=== PATIENT | female | born 1935 | race Caucasian/White ===

== ENCOUNTER 2017-04-14 10:55 | Outpatient (CLI) | payer MEDICARE | END 2017-04-14 10:56 | disposition home or self-care (01) | LOC: BICRAD 10:55 | PROVIDERS: ATTEND Family Medicine | DX: J40 Bronchitis, not specified as acute or chronic (principal) | CPT/HCPCS: 71020 ==

== ENCOUNTER 2017-08-25 16:51 | Emergency (ER) | payer MEDICARE ==
[2017-08-25 18:13] LABS: INR-International Normal Ratio 1.2; PTT 29.8 SEC (22.9-36.1); Prothrombin Time 15.8 SEC (12.0-14.7)
--- NOTE | 2017-08-25 20:27 | CT ---
NONCONTRAST HEAD CT: 08/25/17 HISTORY: Patient fell and hit head today. Patient is on blood thinners. Posttraumatic pain. COMPARISON: 09/04/16, 10/15/12. TECHNIQUE: Noncontrast head CT is performed from skull base to skull vertex. FINDINGS: No parenchymal hemorrhage. No extra-axial hematoma. No midline shift. Basilar cisterns are patent. Brain volume is age appropriate. Cortical james-white matter differentiation is preserved. Ventricles and sulci are patent and symmetric. The ventricular system is slightly more prominent than expected f or the degree of brain volume loss. Correlate for normal pressure hydrocephalus. White matter hypoden sities are similar to the previous examination and are felt to be due to chronic small vessel ischemi c change. Mottled appearance of the calvarium is unchanged from 2013 and is likely chronic. Adequate aeration o f the sinuses and mastoid air cells. No calvarial fractures. Cavernous carotid atherosclerosis is not ed. IMPRESSION: 1. No intracranial posttraumatic sequela. 2. Correlate for possible normal pressure hydrocephalus. POS: [facility]
--- NOTE | 2017-08-25 20:32 | CT ---
CT CERVICAL SPINE WITHOUT CONTRAST: 08/25/17 HISTORY: Patient is on blood thinners. Fall. Posttraumatic pain. COMPARISON: None. TECHNIQUE: Cervical spine CT is performed without contrast. Reformatted images are submitted for interpretation. FINDINGS: Soft tissue neck structures are unremarkable. There is extensive atherosclerosis involving both carot id arteries, with incomplete evaluation. Mass effect upon the posterior right supraglottic larynx due to medial deviation of the right internal carotid artery. Upper mediastinum and lung apices are unre markable. Mild heterogeneity of the thyroid, incompletely evaluated. There are varying degrees of central canal stenosis and foraminal narrowing on the basis of degenerat clary change. Evaluation is limited by technique. No evidence of craniocervical dissociation. Lateral masses of C1 and C2 as well as the facets have ap propriate articulation and alignment. There are degenerative changes of the facets throughout the cer vical spine. Odontoid process is intact. There is straightening of the normal cervical lordosis. Grade I anterolisthesis of C3 upon C4, C4 upo n C5 and C5 upon C6 is noted. Degenerative disc disease with loss of disc space height and osteophyte formation at C5-C6 and C6-C7. Cervical spine vertebral body height is maintained. No fracture. IMPRESSION: No fracture. POS: [facility]
== END 2017-08-25 20:03 | disposition home or self-care (01) ==
LOC: ERS 16:51
DX: S00.83XA Contusion of other part of head, initial encounter (principal); I10 Essential (primary) hypertension; I48.91 Unspecified atrial fibrillation; F32.9 Major depressive disorder, single episode, unspecified; Z87.891 Personal history of nicotine dependence; Z79.899 Other long term (current) drug therapy; W19.XXXA Unspecified fall, initial encounter
CPT/HCPCS: 36415; 70450; 72125; 80053; 81003; 85025; 85610; 85730; 87086

== ENCOUNTER 2017-09-17 08:25 | Emergency (ER) | payer MEDICARE ==
[2017-09-17 09:16] LABS: Bilirubin Negative (Negative); Blood, Urine Negative (Negative); Clarity CLEAR (Clear); Glucose, Urine (Dipstick) >=1000 mg/dL (Negative); Leukocyte Negative (Negative); Nitrite Negative (Negative); Protein, Urine (Dipstick) Negative (Neg-Trace); Specific Gravity, Urine 1.013 (1.002-1.036); Urobilinogen 0.2 mg/dL (0.2-1.0)
--- NOTE | 2017-09-17 09:29 | CT ---
CT HEAD WITHOUT IV CONTRAST: Date: 09-17-17 History: Trauma. Patient has head injury after a fall this morning in restroom. Patient hit back of h ead. Patient has had vomiting. Comparison: 08-25-17 FINDINGS: Again noted is confluent decreased attenuation of the periventricular white matter, similar to the pr ior study and likely reflective of severe chronic small vessel ischemic changes. There is no evidence of an acute cortical infarction, hemorrhage, mass effect or midline shift. There is mild cerebral vo lume loss. Ventricular system does appear mildly dilated and out of proportion to the degree of sulca l atrophy, probably related to greater central cerebral atrophy. However, an element of normal pressu re hydrocephalus could not be entirely excluded. Vascular calcifications are seen in the carotid siphons. There is a stable mottled appearance of the calvarium, unchanged from the prior study and is also sta ble when compared to a study in 2013. This is likely chronic in origin. There has been no interval change compared to the prior exam. IMPRESSION: 1. No acute intracranial abnormalities demonstrated. 2. Severe chronic small vessel ischemic changes and cerebral volume loss. 3. Dilatation of the ventricular system which may be related to greater central cerebral atrophy, but an element of normal pressure hydrocephalus cannot be excluded. Findings are stable from the prior e xam. POS: [facility]
[2017-09-17 09:30] LABS: #Eosinphils 0.1 thou/uL (0.0-0.7); #Lymphocytes 1.4 thou/uL (1.20-3.40); #Monocytes 0.6 thou/uL (0.11-0.59); #Neutrophils 4.3 thou/uL (1.40-6.50); %Basophils 0.3 % (0.0-1.0); %Eosinophils 0.8 % (0.0-10.0); %Lymphocytes 21.3 % (21.0-51.0); %Monocytes 9.4 % (0.0-10.0); %Neutrophils 68.2 % (42.0-75.0); ALT (SGPT) 9 U/L (8-55); AST (SGOT) 12 U/L (5-34); Albumin 4.3 g/dL (3.4-4.8); Alkaline Phosphatase 55 U/L (40-150); Anion Gap 13 mmol/L (10-20); BUN (Urea Nitrogen) 12 mg/dL (9.8-20.1); Bilirubin, Total 0.7 mg/dL (0.2-1.2); Calc. Creatinine Clearance 0 mL/min (70-130); Calcium 9.9 mg/dL (7.8-10.44); Carbon Dioxide 25 mmol/L (23-31); Chloride 96 mmol/L (98-107); Estimated GFR-MDRD 72; Globulin 2.2 g/dL (2.4-3.5); Glucose 141 mg/dL (83-110); Hemoglobin 15.2 g/dL (12.0-16.0); Mean Corpuscular HGB CONC 33.1 g/dL (32.0-36.0); Mean Corpuscular Hemoglobin 26.3 pg (27.0-31.0); Mean Corpuscular Volume 79.4 fl (81.0-99.0); Mean Platelet Volume 6.7 fL (7.4-10.4); Platelet Count 321 thou/uL (130-400); Potassium 3.9 mmol/L (3.5-5.1); Protein, Total 6.5 g/dL (6.0-8.3); Red Blood Cell (RBC) Count 5.81 mill/uL (4.20-5.40); Sodium 130 mmol/L (136-145); White Blood Cell (WBC) Count 6.4 thou/uL (4.8-10.8)
[2017-09-17 10:06] LABS: CKMB 0.5 ng/mL (0-6.6); Troponin I Less than 0.010 ng/mL (< 0.028)
== END 2017-09-17 10:39 | disposition home or self-care (01) ==
LOC: ERS 08:25
DX: S09.90XA Unspecified injury of head, initial encounter (principal); E11.9 Type 2 diabetes mellitus without complications; I48.91 Unspecified atrial fibrillation; I10 Essential (primary) hypertension; F32.9 Major depressive disorder, single episode, unspecified; Z87.891 Personal history of nicotine dependence; Z79.899 Other long term (current) drug therapy; W22.8XXA Striking against or struck by other objects, initial encounter; Y92.89 Other specified places as the place of occurrence of the external cause
CPT/HCPCS: 70450; 80053; 81003; 82553; 84484; 85025; 93005

== ENCOUNTER 2017-09-29 07:51 | Outpatient (CLI) | payer MEDICARE ==
--- NOTE | 2017-09-29 10:33 | CT ---
NONCONTRAST ENHANCED CT CHEST CT LUNG LOW DOSE SCAN SCREENING CT: HISTORY: A 81-year-old female with a 30-year history of smoking. The patient quit 13 years ago. FINDINGS: A low-dose CT is performed. CT images demonstrate extensive calcification of the aorta and coronary arteries. The lung parenchyma is unremarkable. No evidence of pulmonary parenchymal masses or lesions seen. No evidence of pleural plaque seen. Some minimal paratracheal lymph node enlargement is seen. None of these appear to be more than 1 cm in diameter. IMPRESSION: Lung RADS category 1. POS: [facility]
== END 2017-09-29 07:52 | disposition home or self-care (01) ==
LOC: CT 07:51
PROVIDERS: ATTEND Internal Medicine Geriatric Medicine
DX: Z87.891 Personal history of nicotine dependence (principal); R11.0 Nausea
CPT/HCPCS: G0297

== ENCOUNTER 2018-01-24 08:33 | Outpatient (CLI) | payer MEDICARE | END 2018-01-24 08:34 | disposition home or self-care (01) | LOC: BICMAMMO 08:33 | PROVIDERS: ATTEND Internal Medicine Geriatric Medicine | DX: Z12.31 Encounter for screening mammogram for malignant neoplasm of breast (principal); R92.1 Mammographic calcification found on diagnostic imaging of breast; Z80.3 Family history of malignant neoplasm of breast | CPT/HCPCS: 77063; 77067 ==

== ENCOUNTER 2018-01-28 07:52 | Outpatient (CLI) | payer MEDICARE ==
[2018-01-28] MEDS ORDERED: ISOVUE-370 76%-LOCM 1 ML ONE (10:30)
--- NOTE | 2018-01-28 14:29 | CT ---
CT ANGIO OF ABDOMEN AND GIUSEPPE AND LOWER EXTREMTIES PERFORMED WITH INTRAVENOUS CONTRAST ENHANCEMENT WI TH 3d RECONSTRUCTIONS: HISTORY: Diabetic with peripheral vascular disease. The lung bases are clear of any infiltrative process. The liver, spleen, pancreas, and gallbladder regions appear unremarkable on this angiographic phase e xam. Right and left adrenal glands and right and left kidneys are normal in size. No significant periaort ic or mesenteric adenopathy. No free fluid or bowel wall findings. The angiographic portion of the study yielded a fairly good study. There is fairly extensive atheros clerotic change of the abdominal aorta. It is not aneurysmal. The celiac artery shows no significan t stenosis. There is some moderate plaque formation at the origin of the superior mesenteric artery and a mild degree of narrowing somewhat difficult to assess given the calcified plaque. There are 2 right and left renal arteries with smaller lower pole renal arteries seen. The main renal arteries s how some prominent calcified plaque at the origin with an area of mild to moderate narrowing in the l eft main renal artery. The right lower extremity runoff shows dense calcification at the origin of the right common iliac ar dorys. I do not see any definite flow within the right common iliac artery, but there is reconstituti on of flow seen at the bifurcation of the internal and external iliac arteries. There is an area of moderate stenosis of the external iliac artery and there is fairly extensive calcified plaque at the common femoral artery at this level which is also mild to moderately narrowed. There appears to a fo cus of moderately severe stenosis near the junction of the external and common femoral arteries and t here is plaque formation in areas of mild narrowing of the proximal superficial femoral artery. The profunda femoral is patent. Distally, the superficial femoral artery shows no significant stenosis. The popliteal artery shows some plaque formation and mild narrowing of less than 50% with a patent t rifurcation. Posterior tibial extends to the foot. The anterior tibial and peroneal extend to appro ximately the ankle. I do not see a definite dorsalis pedis. On the left side, there is a moderately severe stenosis of the origin of the left common iliac artery . Dense plaque formation is seen in the common iliac artery distally and extensive plaque at the di gin of the internal iliac artery. It is difficult to show flow at this level but directly below this flow is seen within the internal iliac with moderate stenosis. The external iliac is patent. There is calcified plaque at the level of the common femoral artery with moderately severe stenosis. The profunda femoral and superficial femoral arteries are patent. There are areas of mild to moderate st enosis and calcified plaque at origin of the proximal superficial femoral artery. The popliteal navya ry does not show any significant stenosis. There is a patent trifurcation. Both the anterior tibial and peroneal branches are no longer seen and at just above the level of the ankle, a posterior tibia l artery is seen into the foot. IMPRESSION: 1. Extensive calcified plaque formation which makes assessment of the exact degree of stenosis diffi cult. 3. On the right side, there appears to be occlusion of the right common iliac artery at its origin w ith reconstitution at the level of the bifurcation of the internal and internal and external iliac ar teries. There is moderately sever stenosis at the junction of the common femoral and external iliac arteries and areas of mild to moderate narrowing of the proximal superficial femoral artery. There i s 3-vessel runoff to approximately the ankle, but below this level the peroneal and anterior tibial b ranches are not seen and a dorsalis pedis is not demonstrated. 3. On the left side, there is moderately severe narrowing of the left common iliac artery and origin of the left internal iliac. There is also moderate stenosis of the left common femoral artery and s ome areas of mild to moderate narrowing of the proximal superficial femoral artery. There is a paten t trifurcation and, once again, the anterior tibial and peroneal branches are seen to just above the ankle with the posterior tibial extending to the foot. POS: [facility]
== END 2018-01-28 07:53 | disposition home or self-care (01) ==
LOC: BICCT 07:52
PROVIDERS: ATTEND Internal Medicine Cardiovascular Disease
DX: I73.9 Peripheral vascular disease, unspecified (principal); I70.8 Atherosclerosis of other arteries
CPT/HCPCS: 75635; 82565

== ENCOUNTER 2019-03-13 12:48 | Emergency (ER) | payer MEDICARE ==
[2019-03-13 13:18] LABS: #Basophils 0.1 thou/uL (0.0-0.2); #Eosinphils 0.2 thou/uL (0.0-0.7); #Lymphocytes 1.2 thou/uL (1.20-3.40); #Monocytes 0.8 thou/uL (0.11-0.59); #Neutrophils 6.4 thou/uL (1.40-6.50); %Basophils 0.6 % (0.0-1.0); %Eosinophils 2.2 % (0.0-10.0); %Lymphocytes 14.2 % (21.0-51.0); %Monocytes 8.8 % (0.0-10.0); %Neutrophils 74.3 % (42.0-75.0); Hemoglobin 11.7 g/dL (12.0-16.0); Mean Corpuscular HGB CONC 34.2 g/dL (32.0-36.0); Mean Corpuscular Hemoglobin 26.5 pg (27.0-31.0); Mean Corpuscular Volume 77.3 fL (78.0-98.0); Mean Platelet Volume 7.1 fL (7.4-10.4); Platelet Count 317 thou/uL (130-400); RBC Distribution Width 12.1 % (11.5-14.5); Red Blood Cell (RBC) Count 4.43 mill/uL (4.20-5.40); White Blood Cell (WBC) Count 8.6 thou/uL (4.8-10.8)
[2019-03-13 13:27] LABS: Anion Gap 13 mmol/L (10-20); BUN (Urea Nitrogen) 12 mg/dL (9.8-20.1); Calc. Creatinine Clearance 0 mL/min (70-130); Calcium 9.4 mg/dL (7.8-10.44); Carbon Dioxide 24 mmol/L (23-31); Chloride 94 mmol/L (98-107); Estimated GFR-MDRD 82; Glucose 79 mg/dL (83-110); Potassium 4.2 mmol/L (3.5-5.1); Sodium 127 mmol/L (136-145)
[2019-03-13 13:28] LABS: ALT (SGPT) 23 U/L (8-55); AST (SGOT) 22 U/L (5-34); Albumin 3.9 g/dL (3.4-4.8); Alkaline Phosphatase 77 U/L (40-110); Bilirubin, Total 0.4 mg/dL (0.2-1.2); Globulin 2.4 g/dL (2.4-3.5); Protein, Total 6.3 g/dL (6.0-8.3)
--- NOTE | 2019-03-13 13:28 | RAD ---
2 VIEWS CHEST: Date: 03/13/19 COMPARISON: 01/20/19. HISTORY: Cough. FINDINGS: 2 views of the chest show a normal size cardiomediastinal silhouette with atherosclerotic calcificati ons in the aorta. There is no evidence of consolidation, mass, or pleural effusion. IMPRESSION: No evidence of acute cardiopulmonary disease. POS: [facility]
[2019-03-13] MEDS ORDERED: Furosemide 40 MG/4 ML VIAL ONE (16:20)
[2019-03-13] MEDS ORDERED: Furosemide 40 MG TAB ONE (16:54)
== END 2019-03-13 17:20 | disposition home or self-care (01) ==
LOC: ERS 12:48
DX: J06.9 Acute upper respiratory infection, unspecified (principal); E87.1 Hypo-osmolality and hyponatremia; R79.0 Abnormal level of blood mineral; E11.9 Type 2 diabetes mellitus without complications; I48.91 Unspecified atrial fibrillation; I10 Essential (primary) hypertension; F32.9 Major depressive disorder, single episode, unspecified; Z87.891 Personal history of nicotine dependence; Z79.84 Long term (current) use of oral hypoglycemic drugs; Z79.899 Other long term (current) drug therapy
CPT/HCPCS: 36415; 71046; 80053; 83880; 84484; 85025; 87804; 93005; J1940

== ENCOUNTER 2019-04-04 10:42 | Emergency (ER) | payer MEDICARE ==
[2019-04-04 11:07] LABS: #Eosinphils 0.2 thou/uL (0.0-0.7); #Lymphocytes 1.2 thou/uL (1.20-3.40); #Monocytes 0.4 thou/uL (0.11-0.59); %Basophils 0.2 % (0.0-1.0); %Eosinophils 3.8 % (0.0-10.0); %Lymphocytes 21.2 % (21.0-51.0); %Monocytes 6.5 % (0.0-10.0); %Neutrophils 68.4 % (42.0-75.0); Hemoglobin 12.4 g/dL (12.0-16.0); Mean Corpuscular HGB CONC 31.6 g/dL (32.0-36.0); Mean Corpuscular Hemoglobin 25.1 pg (27.0-31.0); Mean Corpuscular Volume 79.4 fL (78.0-98.0); Mean Platelet Volume 7.4 fL (7.4-10.4); Platelet Count 242 thou/uL (130-400); RBC Distribution Width 13.1 % (11.5-14.5); Red Blood Cell (RBC) Count 4.92 mill/uL (4.20-5.40); White Blood Cell (WBC) Count 5.8 thou/uL (4.8-10.8)
[2019-04-04 11:13] LABS: INR-International Normal Ratio 1.2; PTT 29.7 SEC (22.9-36.1); Prothrombin Time 15.1 SEC (12.0-14.7)
--- NOTE | 2019-04-04 11:13 | CT ---
EXAM: CT brain without contrast HISTORY: Fell and hit head on wall COMPARISON: 09/17/2017 TECHNIQUE: Multiple contiguous axial images were obtained and a CT of the brain without contrast. FINDINGS: There are scattered hypodensities in the subcortical and periventricular white matter consi stent with small vessel ischemic disease. There is no evidence of hydrocephalus, intracranial hemorrhage, or extra-axial fluid collection. There is stable sclerosis of the calvarium. The overlying soft tissues are unremarkable. The visualiz ed paranasal sinuses and mastoid air cells are well aerated. IMPRESSION: No evidence of acute intracranial abnormality
[2019-04-04 12:49] LABS: ALT (SGPT) 11 U/L (8-55); AST (SGOT) 13 U/L (5-34); Albumin 3.9 g/dL (3.4-4.8); Alkaline Phosphatase 58 U/L (40-110); Anion Gap 13 mmol/L (10-20); BUN (Urea Nitrogen) 16 mg/dL (9.8-20.1); Bilirubin, Total 0.5 mg/dL (0.2-1.2); Calc. Creatinine Clearance 0 mL/min (70-130); Calcium 9.1 mg/dL (7.8-10.44); Carbon Dioxide 26 mmol/L (23-31); Chloride 101 mmol/L (98-107); Estimated GFR-MDRD 70; Globulin 2.1 g/dL (2.4-3.5); Glucose 171 mg/dL (83-110); Potassium 3.8 mmol/L (3.5-5.1); Sodium 136 mmol/L (136-145)
== END 2019-04-04 13:11 | disposition home or self-care (01) ==
LOC: ERS 10:42
DX: S09.90XA Unspecified injury of head, initial encounter (principal); I48.91 Unspecified atrial fibrillation; G30.9 Alzheimer's disease, unspecified; F32.9 Major depressive disorder, single episode, unspecified; Z87.891 Personal history of nicotine dependence; Z79.899 Other long term (current) drug therapy; Z79.84 Long term (current) use of oral hypoglycemic drugs; W22.01XA Walked into wall, initial encounter
CPT/HCPCS: 36415; 70450; 80053; 85025; 85610; 85730

== ENCOUNTER 2019-09-20 10:21 | Outpatient (CLI) | payer MEDICARE ==
--- NOTE | 2019-09-20 11:17 | RAD ---
PA AND LATERAL VIEWS OF CHEST: Date: 09/20/2019 HISTORY: Chest wall pain, back pain. FINDINGS: Comparison made with exam of 03/13/2019. The heart size is borderline. The aorta is tortuous. The lungs are expanded without lobar consolidati on, pneumothoraces, tabatha pulmonary edema, or pleural effusions. IMPRESSION: No acute process. POS: [facility]
--- NOTE | 2019-09-20 12:08 | RAD ---
THORACIC SPINE 3 VIEWS: Date: 09/20/2019 HISTORY: Back pain. FINDINGS/IMPRESSION: Degenerative changes are present. There is mild vertebral body height loss in the lower thoracic vert ebra. No subluxation or bony destruction is identified. POS: [facility]
== END 2019-09-20 10:22 | disposition home or self-care (01) ==
LOC: BICRAD 10:21
PROVIDERS: ATTEND Family Medicine
DX: M54.5 Low back pain (principal); R07.89 Other chest pain; M47.816 Spondylosis without myelopathy or radiculopathy, lumbar region; M48.8X4 Other specified spondylopathies, thoracic region
CPT/HCPCS: 36415; 71046; 72072; 80053; 84443; 85025

== ENCOUNTER 2019-09-26 07:33 | Outpatient (CLI) | payer MEDICARE ==
--- NOTE | 2019-09-26 08:06 | ULT ---
Sonogram right upper quadrant HISTORY: Right upper quadrant pain. FINDINGS: Gallbladder has a normal appearance. Common duct is 0.5 cm. Liver unremarkable without focal mass or intrahepatic biliary dilatation. No free fluid. IMPRESSION : Normal exam.
== END 2019-09-26 07:34 | disposition home or self-care (01) ==
LOC: ULT 07:33
PROVIDERS: ATTEND Family Medicine
DX: R10.11 Right upper quadrant pain (principal)
CPT/HCPCS: 76705

== ENCOUNTER 2019-11-16 02:26 | Inpatient (IN) | payer MEDICARE ==
[2019-11-16] MEDS ORDERED: Ondansetron PF 4 MG/2 ML Vial ONE (02:49)
[2019-11-16 03:11] LABS: #Basophils 0.1 thou/uL (0.0-0.2); #Eosinphils 0.1 thou/uL (0.0-0.7); #Lymphocytes 1.8 thou/uL (1.20-3.40); #Monocytes 0.5 thou/uL (0.11-0.59); #Neutrophils 6.3 thou/uL (1.40-6.50); %Basophils 0.9 % (0.0-1.0); %Eosinophils 1.1 % (0.0-10.0); %Lymphocytes 20.8 % (21.0-51.0); %Monocytes 5.5 % (0.0-10.0); %Neutrophils 71.7 % (42.0-75.0); Hemoglobin 14.1 g/dL (12.0-16.0); Mean Corpuscular HGB CONC 32.2 g/dL (32.0-36.0); Mean Corpuscular Hemoglobin 26.3 pg (27.0-31.0); Mean Corpuscular Volume 81.5 fL (78.0-98.0); Mean Platelet Volume 7.2 fL (7.4-10.4); Platelet Count 340 thou/uL (130-400); Red Blood Cell (RBC) Count 5.37 mill/uL (4.20-5.40); White Blood Cell (WBC) Count 8.7 thou/uL (4.8-10.8)
[2019-11-16 03:30] LABS: ALT (SGPT) 13 U/L (8-55); AST (SGOT) 19 U/L (5-34); Albumin 4.3 g/dL (3.4-4.8); Alkaline Phosphatase 77 U/L (40-110); Anion Gap 15 mmol/L (10-20); BUN (Urea Nitrogen) 15 mg/dL (9.8-20.1); Bilirubin, Total 0.6 mg/dL (0.2-1.2); Calc. Creatinine Clearance 0 mL/min (70-130); Calcium 9.2 mg/dL (7.8-10.44); Carbon Dioxide 21 mmol/L (23-31); Chloride 95 mmol/L (98-107); Estimated GFR-MDRD 63; Globulin 2.4 g/dL (2.4-3.5); Glucose 222 mg/dL (83-110); Potassium 3.3 mmol/L (3.5-5.1); Protein, Total 6.7 g/dL (6.0-8.3); Sodium 128 mmol/L (136-145)
[2019-11-16 03:42] LABS: Bacteria/HPF 4+ HPF (None Seen); Bilirubin Negative (Negative); Blood, Urine Negative (Negative); Clarity Clear (Clear); Glucose, Urine (Dipstick) 30 mg/dL (Negative); Ketone, Urine 10 mg/dL (Negative); Leukocyte Negative Leu/uL (Negative); Mucous/LPF Rare LPF (<2+); Nitrite 1+ (Negative); Protein, Urine (Dipstick) 50 mg/dL (Neg-Trace); RBC/HPF 0-3 HPF (0-3); Squamous Epithelial None Seen HPF (0-3); Urobilinogen Normal mg/dL (Less than 2)
[2019-11-16] MEDS ORDERED: cefTRIAXone\\ROCEPHIN 2 GM VIAL ONE (03:56)
[2019-11-16] MEDS ORDERED: Ondansetron ODT 4 MG TAB PO PRN (04:51)
[2019-11-16] MEDS ORDERED: Calcium Carbonate 500 MG ChewTAB PO PRN (04:51)
[2019-11-16] MEDS ORDERED: Acetaminophen 650 MG Suppository PR PRN (04:51)
[2019-11-16] MEDS ORDERED: Ondansetron PF 4 MG/2 ML Vial IVP PRN (04:51)
[2019-11-16] MEDS ORDERED: Guaifenesin DM 100-10/5 ML UDCUP PO PRN (04:51)
[2019-11-16] MEDS ORDERED: HYDROcodone/Acetaminophen 5/325 mg Tablet PO PRN (04:51)
--- NOTE | 2019-11-16 05:37 | PDOC.HHP ---
Hospitalist HPI - History of Present Illness altered mental status History of Present Illness: most of the history from ed physician and emr, patient only oriented to person during my evaluation apparently this is her base Case of 83y/o female with pmhx of dm a fib htn and alzheimer disease who comes to hospital due to altered mental state and possible seizure episode. roomate refers patient has been complaning of fever, body aches, chills, cough, nausea and vomiting, during my evaluation pt denied all of these. the patient was brought to hospital because apparently roomate saw her have a seizure, pt has no history of seizures. The patient has a history of Alzheimer's dementia and is altered at baseline. No reported ill contacts. at arrival patient also noted to be hypoxic in the upper 80s for which hospitalist was called for further evaluation and management Hospitalist ROS - Review of Systems ROS unobtainable: due to mental status Hospitalist History - Past Surgical History Other Surgical History: unable to asses due to disorientation - Family History Other Family History: unable to asses due to disorientation - Social History Other Social History: unable to asses due to desorientation - Exam General Appearance: NAD, awake alert Eye: PERRL, anicteric sclera ENT: normocephalic atraumatic, no oropharyngeal lesions Neck: supple, symmetric, no JVD Heart: RRR, no murmur, no gallops Respiratory: CTAB, no wheezes, no rales Gastrointestinal: soft, non-tender, non-distended Extremities: no cyanosis, no clubbing Skin: normal turgor, no lesions Neurological: cranial nerve grossly intact, normal sensation to touch Musculoskeletal: normal tone, normal strength, no muscle wasting Psychiatric: normal affect, normal behavior, oriented to person Hospitalist Results - Labs Result Diagrams: 11/16/19 03:02 11/16/19 03:02 Lab results: WBC 8.7 thou/uL (4.8-10.8) 11/16/19 03:02 Hgb 14.1 g/dL (12.0-16.0) 11/16/19 03:02 Hct 43.8 % (36.0-47.0) 11/16/19 03:02 MCV 81.5 fL (78.0-98.0) 11/16/19 03:02 Plt Count 340 thou/uL (130-400) 11/16/19 03:02 Neutrophils % 71.7 % (42.0-75.0) 11/16/19 03:02 Sodium 128 mmol/L (136-145) L 11/16/19 03:02 Potassium 3.3 mmol/L (3.5-5.1) L 11/16/19 03:02 Chloride 95 mmol/L (98-107) L 11/16/19 03:02 Carbon Dioxide 21 mmol/L (23-31) L 11/16/19 03:02 BUN 15 mg/dL (9.8-20.1) 11/16/19 03:02 Creatinine 0.86 mg/dL (0.6-1.1) 11/16/19 03:02 Glucose 222 mg/dL (83-110) H 11/16/19 03:02 Lactic Acid 1.9 mmol/L (0.5-2.2) 11/16/19 03:02 Calcium 9.2 mg/dL (7.8-10.44) 11/16/19 03:02 Total Bilirubin 0.6 mg/dL (0.2-1.2) 11/16/19 03:02 AST 19 U/L (5-34) 11/16/19 03:02 ALT 13 U/L (8-55) 11/16/19 03:02 Alkaline Phosphatase 77 U/L (40-110) 11/16/19 03:02 Serum Total Protein 6.7 g/dL (6.0-8.3) 11/16/19 03:02 Albumin 4.3 g/dL (3.4-4.8) 11/16/19 03:02 Urine Ketones 10 mg/dL (Negative) A 11/16/19 03:10 Urine Blood Negative (Negative) 11/16/19 03:10 Urine Nitrite 1+ (Negative) A 11/16/19 03:10 Ur Leukocyte Esterase Negative Zuleyka/uL (Negative) 11/16/19 03:10 Urine RBC 0-3 HPF (0-3) 11/16/19 03:10 Urine WBC 4-6 HPF (0-3) A 11/16/19 03:10 Ur Squamous Epith Cells None Seen HPF (0-3) 11/16/19 03:10 Urine Bacteria 4+ HPF (None Seen) A 11/16/19 03:10 Hospitalist H&P A/P - Problem (1) Altered mental status Code(s): R41.82 - ALTERED MENTAL STATUS, UNSPECIFIED Status: Acute (2) Atrial fibrillation Code(s): I48.91 - UNSPECIFIED ATRIAL FIBRILLATION Status: Acute (3) HTN (hypertension) Code(s): I10 - ESSENTIAL (PRIMARY) HYPERTENSION Status: Acute (4) Alzheimer disease Code(s): G30.9 - ALZHEIMER'S DISEASE, UNSPECIFIED; F02.80 - DEMENTIA IN OTH DISEASES CLASSD ELSWHR W/O BEHAVRL DISTURB Status: Acute (5) DM type 2 (diabetes mellitus, type 2) Status: Acute Qualifiers: Diabetes mellitus exterminator termite insulin use: without exterminator termite use Diabetes mellitus complication status: without complication Qualified Code(s): E11.9 - Type 2 diabetes mellitus without complications (6) Hyponatremia Code(s): E87.1 - HYPO-OSMOLALITY AND HYPONATREMIA Status: Acute - Plan Plan: altered mental state - possible witness seizure, started on keppra prophylactically - neurologist consulted - r/o metabolic encephalopathy with cmp, tsh, b12 and ammonia - head ct negative covid r/o - hypoxic - cxr seems to be clear - test send peding results - isolation protocol dm accuchecks and ss afib - chronic, in adeqaute ventricular rate - continue with rate control and ac
[2019-11-16 06:16] LABS: Thyroid Stimulating Hormone 0.6276 uIU/mL (0.35-4.94)
--- NOTE | 2019-11-16 06:59 | CT ---
PRELIMINARY REPORT/[facility]/EMERGENCY AFTER HOURS PROCEDURE: PROCEDURE: CT Head without Contrast . HISTORY: Possible seizure. TECHNIQUE: Axial images were performed without the administration of IV contrast with or without mult iplanar reformations . COMPARISON: 04/04/2019. FINDINGS: Brain shows no mass, hemorrhage, or acute stroke. Moderate periventricular old microischemic changes. Mild diffuse cerebral and cerebellar atrophy. Ventricles are normal size for patient's age. No acute skull or scalp abnormality. Visualized sinuses and mastoids are clear. IMPRESSION: No acute intracranial abnormality. Senescent changes . ELECTRONICALLY SIGNED BY: Edwin Durán MD Nov 16, 2019 3:41:40 AM CDT This report is intended for review by the ordering physician only, in accordance of law. If you recei ve this report in error, please call [facility] at [phone]. FINAL REPORT EMERGENCY AFTER HOURS CT BRAIN WITHOUT CONTRAST: FINDINGS/IMPRESSION: I agree with the findings and impression given in the preliminary report per [facility] physici an. Small vessel ischemic disease without acute intracranial abnormality. POS: [facility]
--- NOTE | 2019-11-16 07:46 | RAD ---
XR Chest 1 View Portable History: Seizure Comparison: Radiograph September 20, 2019 Findings: Heart size is normal. The aorta is mildly tortuous although this is accentuated due to righ tward patient rotation. No confluent airspace consolidation, pneumothorax or effusion. Bilateral rotator cuff arthropathy. Impression: No acute intrathoracic abnormality.
[2019-11-16 08:04] VITALS: BMI 25.5
[2019-11-16] MEDS: levETIRAcetam 500 MG TAB PO SCH ×2 (09:31→20:37)
[2019-11-16] MEDS: Sodium Chloride 0.9% 1,000 ML IV SCH (09:32)
[2019-11-16] MEDS: cefTRIAXone\\ROCEPHIN 1 GM in Sodium Chloride 0.9% 100 ML IVPB SCH (09:32)
[2019-11-16 09:33] LABS: Troponin I 0.019 ng/mL (< 0.028)
[2019-11-16] MEDS: Acetaminophen 325 MG TAB PO PRN (09:55)
--- NOTE | 2019-11-16 13:22 | CON ---
NEUROLOGY CONSULTATION DATE OF CONSULTATION: 11/16/2019 REASON FOR CONSULTATION: Altered mental status/new-onset seizure. HISTORY OF PRESENT ILLNESS: Ms. Palacio is an 83-year-old female with history significant for atrial fibrillation, hypertension, diabetes, and Alzheimer dementia, presented to the hospital with altered mental status. The history is taken from review of the medical records since the patient is unable to provide the history. According to the roommate, the patient has been complaining of body aches, chills, fever, nausea and vomiting, and there was a concern that she may have an episode of shaking, and there was a concern about seizures. There is no prior history of seizures. When she arrived to the emergency room, she was hypoxic in the upper 80s, so she was admitted for further evaluation. In the emergency room, she was also started on Keppra for seizure prophylaxis. REVIEW OF SYSTEMS: Unobtainable due to mental status. PAST MEDICAL HISTORY: Per records, atrial fibrillation, diabetes mellitus, Alzheimer dementia. PAST SURGICAL HISTORY: No significant past surgical history. FAMILY HISTORY: No significant family history. SOCIAL HISTORY: There is no documented history of smoking, alcohol, or illegal drug use. PHYSICAL EXAMINATION: VITAL SIGNS: Blood pressure 140/60, pulse 80, respiratory rate 18. CVS: Regular rate and rhythm. CHEST: Clear. NECK: Supple. HEENT: Normocephalic, atraumatic. SKIN: Normal turgor. NEUROLOGIC: Mental status; the patient is alert, awake, and knows her name and place, and oriented to name and place only. She follows commands intermittently. Speech is clear. She thinks the president is Manriquez. Cranial nerves 2 through 12 intact. Motor; muscle tone is normal, bulk is decreased. Moving all 4 extremities equally and symmetrically. Sensory; withdraws to pinprick bilaterally. Cerebellar; did not cooperate with the testing. Gait deferred due to the patient's safety reasons. Lab results: WBC 8.7 thou/uL (4.8-10.8) 11/16/19 03:02 Hgb 14.1 g/dL (12.0-16.0) 11/16/19 03:02 Hct 43.8 % (36.0-47.0) 11/16/19 03:02 MCV 81.5 fL (78.0-98.0) 11/16/19 03:02 Plt Count 340 thou/uL (130-400) 11/16/19 03:02 Neutrophils % 71.7 % (42.0-75.0) 11/16/19 03:02 Sodium 128 mmol/L (136-145) L 11/16/19 03:02 Potassium 3.3 mmol/L (3.5-5.1) L 11/16/19 03:02 Chloride 95 mmol/L (98-107) L 11/16/19 03:02 Carbon Dioxide 21 mmol/L (23-31) L 11/16/19 03:02 BUN 15 mg/dL (9.8-20.1) 11/16/19 03:02 Creatinine 0.86 mg/dL (0.6-1.1) 11/16/19 03:02 Glucose 222 mg/dL (83-110) H 11/16/19 03:02 Lactic Acid 1.9 mmol/L (0.5-2.2) 11/16/19 03:02 Calcium 9.2 mg/dL (7.8-10.44) 11/16/19 03:02 Total Bilirubin 0.6 mg/dL (0.2-1.2) 11/16/19 03:02 AST 19 U/L (5-34) 11/16/19 03:02 ALT 13 U/L (8-55) 11/16/19 03:02 Alkaline Phosphatase 77 U/L (40-110) 11/16/19 03:02 Serum Total Protein 6.7 g/dL (6.0-8.3) 11/16/19 03:02 Albumin 4.3 g/dL (3.4-4.8) 11/16/19 03:02 Urine Ketones 10 mg/dL (Negative) A 11/16/19 03:10 Urine Blood Negative (Negative) 11/16/19 03:10 Urine Nitrite 1+ (Negative) A 11/16/19 03:10 Ur Leukocyte Esterase Negative Zuleyka/uL (Negative) 11/16/19 03:10 Urine RBC 0-3 HPF (0-3) 11/16/19 03:10 Urine WBC 4-6 HPF (0-3) A 11/16/19 03:10 Ur Squamous Epith Cells None Seen HPF (0-3) 11/16/19 03:10 Urine Bacteria 4+ HPF (None Seen) A 11/16/19 03:10 LABORATORY DATA: Data reviewed. I reviewed the labs which were significant for hyponatremia at 128 and hypokalemia at 3.3 and hyperglycemia at 222. CBC was essentially unremarkable. A/P - Problem (1) Altered mental status Code(s): R41.82 - ALTERED MENTAL STATUS, UNSPECIFIED Status: Acute (2) Atrial fibrillation Code(s): I48.91 - UNSPECIFIED ATRIAL FIBRILLATION Status: Acute (3) HTN (hypertension) Code(s): I10 - ESSENTIAL (PRIMARY) HYPERTENSION Status: Acute (4) Alzheimer disease Code(s): G30.9 - ALZHEIMER'S DISEASE, UNSPECIFIED; F02.80 - DEMENTIA IN OTH DISEASES CLASSD ELSWHR W/O BEHAVRL DISTURB Status: Acute (5) DM type 2 (diabetes mellitus, type 2) Status: Acute Qualifiers: Diabetes mellitus longwall headgate operator insulin use: without senior care use Diabetes mellitus complication status: without complication Qualified Code(s): E11.9 - Type 2 diabetes mellitus without complications (6) Hyponatremia Code(s): E87.1 - HYPO-OSMOLALITY AND HYPONATREMIA Status: Acute Ms. Ha Palacio is consulted for altered mental status with a risk of seizure-like episode. She was already started on Keppra for seizure prophylaxis. She has no prior history of epilepsy or seizure-like episodes. Most likely, a provoked seizure in the setting of metabolic and infectious etiology. Continue Keppra for now. Neuro checks every 4 hours. Telemetry. History of atrial fibrillation, consider Cardiology input. Observe seizure precautions. Ativan 2 mg IV for seizure greater than 3 minutes. Recommend EEG to rule out interictal epileptiform abnormalities. Recommend MRI of brain to evaluate for seizure focus. If the above testing is negative, then discontinue Keppra. No need to start an anticonvulsant based on one time seizure-like activity, which may be provoked secondary to metabolic and infectious etiology. Continue medical management per Primary Team. Plan discussed with the primary attending, Dr. Magallon. We will continue to follow. Further recommendations depend on the results of the testing. Job ID: [id number] MTDD
--- NOTE | 2019-11-16 15:36 | MRI ---
MRI BRAIN WITHOUT CONTRAST: HISTORY: Seizure COMPARISON: 01/15/2017 CORRELATION: CT scan from 11/16/2019. FINDINGS: No restricted diffusion is seen. There are multiple foci of T2 prolongation in the periventricular wh ite matter, consistent with chronic small vessel ischemic disease. Changes of cortical atrophy are again seen. The ventricular size is stable and the basilar cisterns are patent. No evidence of acute infarct, hemorrhage, midline shift or abnormal extra-axial fluid collections is seen. The visualized paranasal sinuses and mastoid air cells are well-aerated. IMPRESSION: No evidence of acute intracranial process.
--- NOTE | 2019-11-16 16:05 | EEG ---
DATE OF SERVICE: 11/16/2019 ATTENDING PHYSICIAN: Lissett Jc MD This EEG was performed using 24-channel [employer] video digital EEG machine with 24 disk electrodes. This was an extended 2 hours 10 minutes of inpatient video EEG recording. BACKGROUND: The posterior background rhythm was not observed. HYPERVENTILATION: Not performed. PHOTIC STIMULATION: Not performed. SLEEP: Drowsiness and sleep are observed during most of the recording. EEG DIAGNOSES: 1. Sharply contoured delta activity intermixed with spikes lasting for about 1 to 2 seconds in bilateral posterior occipital regions was seen on occasionally during the recording. 2. Generalized irregular theta activity. 3. Absence of posterior background rhythm. CLINICAL INTERPRETATION: This EEG is consistent with cortical irritability in both the right and left posterior occipital region in the setting of focal cerebral dysfunction in the same region. There is also evidence of moderate generalized nonspecific cerebral dysfunction .Focal slowing in bilateral posterior occipital region intermixed with spikes seems potentially epileptogenic. Clinical correlation is advised. Job ID: [id number] [facility]
[2019-11-17] MEDS: cefTRIAXone\\ROCEPHIN 1 GM in Sodium Chloride 0.9% 100 ML IVPB SCH (05:37)
[2019-11-17] MEDS: Sodium Chloride 0.9% 1,000 ML IV SCH (05:40)
[2019-11-17 06:45] LABS: Hemoglobin 13.1 g/dL (12.0-16.0); Mean Corpuscular HGB CONC 32.8 g/dL (32.0-36.0); Mean Corpuscular Hemoglobin 26.8 pg (27.0-31.0); Mean Corpuscular Volume 81.8 fL (78.0-98.0); Mean Platelet Volume 6.9 fL (7.4-10.4); Platelet Count 295 thou/uL (130-400); RBC Distribution Width 11.8 % (11.5-14.5); White Blood Cell (WBC) Count 6.7 thou/uL (4.8-10.8)
[2019-11-17 06:59] LABS: Band 1 % (5-11); Eosinophils 4 % (0-10); Lymphocytes 18 % (21-51); MDiff Complete? YES; Monocytes 6 % (0-10); Neutrophil 71 % (42-75)
[2019-11-17 07:04] LABS: ALT (SGPT) 14 U/L (8-55); AST (SGOT) 17 U/L (5-34); Albumin 3.8 g/dL (3.4-4.8); Alkaline Phosphatase 66 U/L (40-110); Anion Gap 14 mmol/L (10-20); BUN (Urea Nitrogen) 10 mg/dL (9.8-20.1); Bilirubin, Total 0.4 mg/dL (0.2-1.2); Calc. Creatinine Clearance 57 mL/min (70-130); Calcium 8.8 mg/dL (7.8-10.44); Carbon Dioxide 23 mmol/L (23-31); Chloride 102 mmol/L (98-107); Estimated GFR-MDRD 74; Globulin 2.2 g/dL (2.4-3.5); Glucose 103 mg/dL (83-110); Potassium 3.3 mmol/L (3.5-5.1); Sodium 136 mmol/L (136-145)
[2019-11-17] MEDS: levETIRAcetam 500 MG TAB PO SCH ×2 (08:32→20:48)
--- NOTE | 2019-11-17 08:41 | PDOC.HOSPP ---
- Subjective Encounter Date: 11/17/19 Encounter Time: 11:00 Subjective: Patient without complaints. Not oriented. No events overnight. No seizures per nursing. - Objective Vital Signs & Weight: Vital Signs (12 hours) Temp Pulse Resp BP Pulse Ox 11/17/19 07:26 97.5 F L 73 18 161/75 H 95 11/17/19 04:45 97.9 F 80 17 162/70 H 96 11/17/19 00:31 97.5 F L 76 17 147/84 H 96 11/16/19 20:51 96 Weight Weight 135 lb 3 oz I&O: 11/16/19 11/17/19 11/18/19 06:59 06:59 06:59 Intake Total 866 Balance 866 Result Diagrams: 11/17/19 06:26 11/17/19 06:26 Hospitalist ROS - Review of Systems ROS unobtainable: due to mental status - Medication Medications: Active Medications Generic Name Dose Route Start Last Admin Trade Name Freq PRN Reason Stop Dose Admin Acetaminophen 650 mg 11/16/19 04:51 11/16/19 09:55 Tylenol PO 650 mg Q4H PRN Administration Headache/Fever/Mild Pain (1-3) Ceftriaxone Sodium 1 gm/ 100 mls @ 200 mls/hr 11/16/19 06:00 11/17/19 05:37 Sodium Chloride IVPB 100 mls 0600 SILVINO Administration Sodium Chloride 1,000 mls @ 40 mls/hr 11/16/19 05:15 11/17/19 05:40 Normal Saline 0.9% IV 1,000 mls .Q24H SILVINO Administration Levetiracetam 500 mg 11/16/19 09:00 11/16/19 20:37 Keppra PO 500 mg BID SILVINO Administration Sodium Chloride 10 ml 11/16/19 09:00 11/17/19 05:14 Flush - Normal Saline IVF Not Given Q12HR SILVINO - Exam General Appearance: NAD, awake alert ENT: moist mucosa Heart: RRR, no murmur, no gallops, no rubs Respiratory: CTAB, no wheezes, no rales, no ronchi Gastrointestinal: soft, non-tender, non-distended, normal bowel sounds Neurological: no focal deficits Psychiatric: normal affect, normal behavior, oriented to person. negative: oriented to place, oriented to time Hosp A/P (1) Acute respiratory failure with hypoxia Code(s): J96.01 - ACUTE RESPIRATORY FAILURE WITH HYPOXIA Status: Resolved (2) Seizure Code(s): R56.9 - UNSPECIFIED CONVULSIONS Status: Acute (3) Elevated d-dimer Code(s): R79.89 - OTHER SPECIFIED ABNORMAL FINDINGS OF BLOOD CHEMISTRY Status : Acute (4) Alzheimer disease Code(s): G30.9 - ALZHEIMER'S DISEASE, UNSPECIFIED; F02.80 - DEMENTIA IN OTH DISEASES CLASSD ELSWHR W/O BEHAVRL DISTURB Status: Chronic (5) HTN (hypertension) Code(s): I10 - ESSENTIAL (PRIMARY) HYPERTENSION Status: Chronic (6) DM type 2 (diabetes mellitus, type 2) Status: Chronic Qualifiers: Diabetes mellitus intermodal truck driver insulin use: without intermodal truck driver use Diabetes mellitus complication status: without complication Qualified Code(s): E11.9 - Type 2 diabetes mellitus without complications (7) UTI (urinary tract infection) Status: Acute Qualifiers: Urinary tract infection type: site unspecified Hematuria presence: without hematuria Qualified Code(s): N39.0 - Urinary tract infection, site not specified (8) Atrial fibrillation with controlled ventricular rate Code(s): I48.91 - UNSPECIFIED ATRIAL FIBRILLATION Status: Chronic - Plan Patient with abnormal EEG so Keppra continued D-dimer elevated and initially with hypoxia now resolved. Will check a CTA chest. Patient is on low dose Eliquis so less likely Bacteruria growing back gram neg rods, but no inflammatory changes, not sure how significant of a UTI, on Rocephin CXR clear of infection Patient with dementia, likely at her baseline mental status now. PT/OT. If able to ambulate and no more seizures can likely go home tomorrow.
--- NOTE | 2019-11-17 10:27 | CT ---
CTA Angio Chest W Con History: Elevated d-dimer. Hypoxia. Comparison: Reference is made to chest radiograph prior day Findings: CT scan chest performed at the intravenous ministration of contrast. 3-D rendering provided . Calcifications in the inferior right lobe of thyroid. There is no proximal segmental pulmonary arteri al filling defect. No pericardial effusion. Celiac trunk and superior mesenteric arteries are patent. No aneurysmal dila tation of the aorta. Low-grade emphysema lung apices. No confluent airspace consolidation, pneumothorax or effusion. No ac obie thoracic spine fracture. L2 superior endplate compression deformity with low-grade retropulsion is incompletely evaluated. Sternum and manubrium are intact. No acute displaced rib fracture. Impression: 1. No pulmonary embolism. 2. No acute inflammatory process in the chest. 3. No evidence for pneumonia. 4. Low-grade centrilobular emphysema. 5. Bilateral rotator cuff arthropathy, worse on the right. 6. Incomplete evaluation of the compression fracture of L2 only partially within the [id number] is some retropulsion of the posterior superior endplate. Lumbar spine radiographs recommended.
[2019-11-17] MEDS: metFORMIN 500 MG TAB PO SCH ×2 (10:35→20:48)
[2019-11-17] MEDS: Calcium Carbonate 600 MG TAB PO SCH (10:35)
[2019-11-17] MEDS: Apixaban 2.5 MG TAB PO SCH ×2 (10:35→20:48)
[2019-11-17] MEDS: Escitalopram Oxalate 10 mg Tablet PO SCH (10:35)
[2019-11-17] MEDS: Multivitamin W/ Minerals 1 TAB PO SCH (10:36)
[2019-11-17] MEDS: Cholecalciferol 1,000 UNITS (25 MCG) TAB PO SCH (10:36)
[2019-11-17] MEDS: Cyanocobalamin (Vitamin B-12) 1,000 MCG TAB PO SCH (10:36)
[2019-11-17] MEDS: Amlodipine 10 MG TAB PO SCH (10:36)
[2019-11-17] MEDS: Acetaminophen 325 MG TAB PO PRN (10:36)
--- NOTE | 2019-11-17 12:11 | PDOC.HOSPP ---
- Subjective Encounter Date: 11/17/19 Subjective: NEUROLOGY PROGRESS NOTE Patient alert, awake and following commands . No acute events overnight. - Objective Vital Signs & Weight: Vital Signs (12 hours) Temp Pulse Resp BP Pulse Ox 11/17/19 07:26 97.5 F L 73 18 161/75 H 95 11/17/19 04:45 97.9 F 80 17 162/70 H 96 11/17/19 00:31 97.5 F L 76 17 147/84 H 96 Weight Weight 135 lb 3 oz I&O: 11/16/19 11/17/19 11/18/19 06:59 06:59 06:59 Intake Total 866 360 Balance 866 360 Result Diagrams: 11/17/19 06:26 11/17/19 06:26 Radiology Reviewed by me: Yes EKG Reviewed by me: Yes Hospitalist ROS - Review of Systems Constitutional: denies: fever, chills, sweats, weakness, malaise, other Eyes: denies: pain, vision change, conjunctivae inflammation, eyelid inflammation, redness, other ENT: denies: ear pain, ear discharge, nose pain, nose discharge, nose congestion , mouth pain, mouth swelling, throat pain, throat swelling, other Respiratory: denies: cough, dry, shortness of breath, hemoptysis, SOB with excertion, pleuritic pain, sputum, wheezing, other Cardiovascular: denies: chest pain, palpitations, orthopnea, paroxysmal noc. dyspnea, edema, light headedness, other Gastrointestinal: denies: nausea, vomiting, abdominal pain, diarrhea, constipation, melena, hematochezia, other Genitourinary: denies: dysuria, frequency, incontinence, hematuria, retention, other Musculoskeletal: denies: neck pain, shoulder pain, arm pain, back pain, hand pain, leg pain, foot pain, other Skin: denies: rash, lesions, janki, bruising, other Neurological: reports: confusion, seizures. denies: weakness, numbness, incoordination, change in speech, other - Medication Medications: Active Medications Generic Name Dose Route Start Last Admin Trade Name Freq PRN Reason Stop Dose Admin Acetaminophen 650 mg 11/16/19 04:51 11/17/19 10:36 Tylenol PO 650 mg Q4H PRN Administration Headache/Fever/Mild Pain (1-3) Amlodipine Besylate 10 mg 11/17/19 09:00 11/17/19 10:36 Norvasc PO 10 mg DAILY SILVINO Administration Apixaban 2.5 mg 11/17/19 09:00 11/17/19 10:35 Eliquis PO 2.5 mg BID SILVINO Administration Calcium Carbonate 1,200 mg 11/17/19 09:00 11/17/19 10:35 Caltrate PO 1,200 mg DAILY SILVINO Administration Cholecalciferol 1,000 units 11/17/19 09:00 11/17/19 10:36 Vitamin D3 PO 1,000 units DAILY SILVINO Administration Cyanocobalamin 1,000 mcg 11/17/19 09:00 11/17/19 10:36 Vitamin B-12 PO 1,000 mcg DAILY SILVINO Administration Escitalopram Oxalate 10 mg 11/17/19 09:00 11/17/19 10:35 Lexapro PO 10 mg DAILY SILVINO Administration Ceftriaxone Sodium 1 gm/ 100 mls @ 200 mls/hr 11/16/19 06:00 11/17/19 05:37 Sodium Chloride IVPB 100 mls 0600 SILVINO Administration Sodium Chloride 1,000 mls @ 40 mls/hr 11/16/19 05:15 11/17/19 05:40 Normal Saline 0.9% IV 1,000 mls .Q24H SILVINO Administration Iron/Minerals/Multivitamins 1 tab 11/17/19 09:00 11/17/19 10:36 Theragran M PO 1 tab DAILY SILVINO Administration Levetiracetam 500 mg 11/16/19 09:00 11/17/19 08:32 Keppra PO 500 mg BID SILVINO Administration Memantine 10 mg 11/17/19 09:00 11/17/19 10:36 Namenda PO 10 mg BID SILVINO Administration Metformin HCl 500 mg 11/17/19 09:00 11/17/19 10:35 Glucophage PO 500 mg BID SILVINO Administration Sodium Chloride 10 ml 11/16/19 09:00 11/17/19 08:33 Flush - Normal Saline IVF Not Given Q12HR SILVINO - Exam General Appearance: awake alert Eye: PERRL ENT: normocephalic atraumatic Neck: supple Heart: RRR Respiratory: CTAB Gastrointestinal: soft Extremities: no cyanosis Skin: normal turgor Neurological: no focal deficits, no new deficit Musculoskeletal: normal tone, normal strength Psychiatric: normal affect, normal behavior, oriented to person, oriented to place Hosp A/P (1) Altered mental status Code(s): R41.82 - ALTERED MENTAL STATUS, UNSPECIFIED Status: Acute (2) Atrial fibrillation Code(s): I48.91 - UNSPECIFIED ATRIAL FIBRILLATION Status: Acute (3) Seizure Code(s): R56.9 - UNSPECIFIED CONVULSIONS Status: Acute (4) HTN (hypertension) Code(s): I10 - ESSENTIAL (PRIMARY) HYPERTENSION Status: Chronic (5) Hyponatremia Code(s): E87.1 - HYPO-OSMOLALITY AND HYPONATREMIA Status: Acute - Plan PT/OT, speech therapy, DVT proph w/SCDs 83 year old presented with altered mental status and new onset seizure. MRI brain reviewed which was negative for acute process. EEG abnormal. Continue Keppra for seizure prophylaxis. Observe seizure precautions. PT/OT Ativan 2 mg IV for seizure greater than 2 minutes. Neurochecks every 4 hours. Continue home medications. Continue medical management per primary team. Plan discussed with the patient and communicated to the primary attending Dr. Magallon.
[2019-11-17] MEDS ORDERED: Iopamidol-370 76% 500 ML 1 ML ONE (12:24)
[2019-11-17] MEDS: Donepezil HCl 10 MG TAB PO SCH (20:48)
[2019-11-18] MEDS: cefTRIAXone\\ROCEPHIN 1 GM in Sodium Chloride 0.9% 100 ML IVPB SCH (05:16)
[2019-11-18] MEDS: Sodium Chloride 0.9% 1,000 ML IV SCH (05:17)
[2019-11-18] MEDS: levETIRAcetam 500 MG TAB PO SCH ×2 (08:04→21:32)
[2019-11-18] MEDS: Amlodipine 10 MG TAB PO SCH (08:04)
[2019-11-18] MEDS: Multivitamin W/ Minerals 1 TAB PO SCH (08:04)
[2019-11-18] MEDS: metFORMIN 500 MG TAB PO SCH ×2 (08:04→21:32)
[2019-11-18] MEDS: Cyanocobalamin (Vitamin B-12) 1,000 MCG TAB PO SCH (08:04)
[2019-11-18] MEDS: Escitalopram Oxalate 10 mg Tablet PO SCH (08:04)
[2019-11-18] MEDS: Calcium Carbonate 600 MG TAB PO SCH (08:11)
[2019-11-18] MEDS: Cholecalciferol 1,000 UNITS (25 MCG) TAB PO SCH (08:11)
[2019-11-18] MEDS: Apixaban 2.5 MG TAB PO SCH ×2 (08:11→21:32)
--- NOTE | 2019-11-18 09:10 | PDOC.HOSPP ---
- Subjective Encounter Date: 11/18/19 Encounter Time: 11:00 Subjective: Patient with some low back pain from "laying in bed." No other complaints. Knows she is in a hospital and I'm a doctor, but not otherwise oriented. - Objective Vital Signs & Weight: Vital Signs (12 hours) Temp Pulse Resp BP BP Pulse Ox 11/18/19 08:04 82 151/80 H 11/18/19 07:17 97.9 F 65 18 149/76 H 96 11/18/19 04:00 98.0 F 68 18 146/83 H 96 11/18/19 00:00 97.5 F L 64 18 132/73 97 Weight Weight 135 lb 3 oz I&O: 11/17/19 11/18/19 11/19/19 06:59 06:59 06:59 Intake Total 866 1860 Balance 866 1860 Result Diagrams: 11/17/19 06:26 11/17/19 06:26 Hospitalist ROS - Review of Systems Constitutional: denies: fever, chills Respiratory: denies: cough, shortness of breath Cardiovascular: denies: chest pain, palpitations Gastrointestinal: denies: nausea, vomiting, abdominal pain Musculoskeletal: reports: back pain - Medication Medications: Active Medications Generic Name Dose Route Start Last Admin Trade Name Freq PRN Reason Stop Dose Admin Acetaminophen 650 mg 11/16/19 04:51 11/17/19 10:36 Tylenol PO 650 mg Q4H PRN Administration Headache/Fever/Mild Pain (1-3) Amlodipine Besylate 10 mg 11/17/19 09:00 11/18/19 08:04 Norvasc PO 10 mg DAILY SILVINO Administration Apixaban 2.5 mg 11/17/19 09:00 11/18/19 08:11 Eliquis PO 2.5 mg BID SILVINO Administration Calcium Carbonate 1,200 mg 11/17/19 09:00 11/18/19 08:11 Caltrate PO 1,200 mg DAILY SILVINO Administration Cholecalciferol 1,000 units 11/17/19 09:00 11/18/19 08:11 Vitamin D3 PO 1,000 units DAILY SILVINO Administration Cyanocobalamin 1,000 mcg 11/17/19 09:00 11/18/19 08:04 Vitamin B-12 PO 1,000 mcg DAILY SILVINO Administration Donepezil HCl 10 mg 11/17/19 21:00 11/17/19 20:48 Aricept PO 10 mg HS SILVINO Administration Escitalopram Oxalate 10 mg 11/17/19 09:00 11/18/19 08:04 Lexapro PO 10 mg DAILY SILVINO Administration Ceftriaxone Sodium 1 gm/ 100 mls @ 200 mls/hr 11/16/19 06:00 11/18/19 05:16 Sodium Chloride IVPB 100 mls 0600 SILVINO Administration Sodium Chloride 1,000 mls @ 40 mls/hr 11/16/19 05:15 11/18/19 05:17 Normal Saline 0.9% IV 1,000 mls .Q24H SILVINO Administration Iron/Minerals/Multivitamins 1 tab 11/17/19 09:00 11/18/19 08:04 Theragran M PO 1 tab DAILY SILVINO Administration Levetiracetam 500 mg 11/16/19 09:00 11/18/19 08:04 Keppra PO 500 mg BID SILVINO Administration Memantine 10 mg 11/17/19 09:00 11/18/19 08:11 Namenda PO 10 mg BID SILVINO Administration Metformin HCl 500 mg 11/17/19 09:00 11/18/19 08:04 Glucophage PO 500 mg BID SILVINO Administration Metoprolol Succinate 50 mg 11/17/19 21:00 11/17/19 20:48 Toprol Xl PO 50 mg HS SILVINO Administration Sodium Chloride 10 ml 11/16/19 09:00 11/18/19 08:05 Flush - Normal Saline IVF 10 ml Q12HR SILVINO Administration - Exam General Appearance: NAD, awake alert ENT: moist mucosa Heart: RRR, no murmur, no gallops, no rubs Respiratory: CTAB, no wheezes, no rales, no ronchi Gastrointestinal: soft, non-tender, non-distended, normal bowel sounds Psychiatric: normal affect, normal behavior, oriented to person Hosp A/P (1) Acute respiratory failure with hypoxia Code(s): J96.01 - ACUTE RESPIRATORY FAILURE WITH HYPOXIA Status: Resolved (2) Seizure Code(s): R56.9 - UNSPECIFIED CONVULSIONS Status: Acute (3) Elevated d-dimer Code(s): R79.89 - OTHER SPECIFIED ABNORMAL FINDINGS OF BLOOD CHEMISTRY Status : Acute (4) Alzheimer disease Code(s): G30.9 - ALZHEIMER'S DISEASE, UNSPECIFIED; F02.80 - DEMENTIA IN H DISEASES CLASSD ELSWHR W/O BEHAVRL DISTURB Status: Chronic (5) HTN (hypertension) Code(s): I10 - ESSENTIAL (PRIMARY) HYPERTENSION Status: Chronic (6) DM type 2 (diabetes mellitus, type 2) Status: Chronic Qualifiers: 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 termite treater use Diabetes mellitus complication status: without complication Qualified Code(s): E11.9 - Type 2 diabetes mellitus without complications (7) UTI (urinary tract infection) Status: Acute Qualifiers: Urinary tract infection type: site unspecified Hematuria presence: without hematuria Qualified Code(s): N39.0 - Urinary tract infection, site not specified (8) Atrial fibrillation with controlled ventricular rate Code(s): I48.91 - UNSPECIFIED ATRIAL FIBRILLATION Status: Chronic (9) Lumbar compression fracture Code(s): S32.000A - WEDGE COMPRESSION FRACTURE OF UNSP LUMBAR VERTEBRA, INIT Status: Acute - Plan Patient with abnormal EEG so Keppra continued D-dimer elevated and initially with hypoxia now resolved. CTA chest negative for PE. Patient is on low dose Eliquis. Bacteruria growing pansensitive E.coli, but no inflammatory changes, not sure how significant of a UTI, on Rocephin CXR clear of infection Patient with dementia, likely at her baseline mental status now. Does have a new Lumbar compression fx on CTA that wasn't on Lumbar x-rays a year ago. Will check L-spine x-ray to better evaluate. PT/OT. If able to ambulate and no more seizures can likely go home.
[2019-11-18 11:29] LABS: Anion Gap 14 mmol/L (10-20); BUN (Urea Nitrogen) 8 mg/dL (9.8-20.1); Calc. Creatinine Clearance 59 mL/min (70-130); Calcium 9.2 mg/dL (7.8-10.44); Carbon Dioxide 25 mmol/L (23-31); Chloride 99 mmol/L (98-107); Estimated GFR-MDRD 78; Glucose 84 mg/dL (83-110); Potassium 3.1 mmol/L (3.5-5.1); Sodium 135 mmol/L (136-145)
--- NOTE | 2019-11-18 13:36 | RAD ---
LUMBAR SPINE THREE VIEWS: 11/18/19 HISTORY: L2 fracture FINDINGS/IMPRESSION: There are compression fractures involving T11, L2 and L5 vertebrae. There is minimal anterolisthesis of L4 over L5. Vascular calcifications are present. No significant retropulsion is seen. POS: KIMA
[2019-11-18] MEDS: Donepezil HCl 10 MG TAB PO SCH (21:32)
[2019-11-18] MEDS: Temazepam 15 MG CAP PO PRN (21:33)
[2019-11-19] MEDS: cefTRIAXone\\ROCEPHIN 1 GM in Sodium Chloride 0.9% 100 ML IVPB SCH (06:13)
[2019-11-19 06:39] LABS: Anion Gap 13 mmol/L (10-20); BUN (Urea Nitrogen) 6 mg/dL (9.8-20.1); Calc. Creatinine Clearance 67 mL/min (70-130); Calcium 9.3 mg/dL (7.8-10.44); Carbon Dioxide 25 mmol/L (23-31); Chloride 98 mmol/L (98-107); Estimated GFR-MDRD 89; Glucose 111 mg/dL (83-110); Potassium 3.2 mmol/L (3.5-5.1); Sodium 133 mmol/L (136-145)
[2019-11-19 06:47] LABS: #Eosinphils 0.2 thou/uL (0.0-0.7); #Lymphocytes 1.1 thou/uL (1.20-3.40); #Monocytes 0.5 thou/uL (0.11-0.59); #Neutrophils 4.7 thou/uL (1.40-6.50); %Basophils 0.7 % (0.0-1.0); %Eosinophils 3.4 % (0.0-10.0); %Neutrophils 71.8 % (42.0-75.0); Hemoglobin 13.2 g/dL (12.0-16.0); Mean Corpuscular HGB CONC 32.6 g/dL (32.0-36.0); Mean Corpuscular Hemoglobin 26.1 pg (27.0-31.0); Mean Corpuscular Volume 80.1 fL (78.0-98.0); Mean Platelet Volume 7.5 fL (7.4-10.4); Platelet Count 313 thou/uL (130-400); RBC Distribution Width 11.9 % (11.5-14.5); Red Blood Cell (RBC) Count 5.04 mill/uL (4.20-5.40); White Blood Cell (WBC) Count 6.6 thou/uL (4.8-10.8)
[2019-11-19] MEDS: metFORMIN 500 MG TAB PO SCH ×2 (08:38→21:14)
[2019-11-19] MEDS: Apixaban 2.5 MG TAB PO SCH ×2 (08:38→21:14)
[2019-11-19] MEDS: Calcium Carbonate 600 MG TAB PO SCH (08:38)
[2019-11-19] MEDS: levETIRAcetam 500 MG TAB PO SCH ×2 (08:38→21:14)
[2019-11-19] MEDS: Amlodipine 10 MG TAB PO SCH (08:39)
[2019-11-19] MEDS: Escitalopram Oxalate 10 mg Tablet PO SCH (08:39)
[2019-11-19] MEDS: Cyanocobalamin (Vitamin B-12) 1,000 MCG TAB PO SCH (08:39)
[2019-11-19] MEDS: Cholecalciferol 1,000 UNITS (25 MCG) TAB PO SCH (08:39)
[2019-11-19] MEDS: Multivitamin W/ Minerals 1 TAB PO SCH (08:39)
--- NOTE | 2019-11-19 12:29 | PDOC.HOSPP ---
- Subjective Encounter Date: 11/19/19 Encounter Time: 12:26 Subjective: alert, cheerfull , no CO - Objective Vital Signs & Weight: Vital Signs (12 hours) Temp Pulse Resp BP BP Pulse Ox 11/19/19 12:19 97.4 F L 72 18 167/74 H 96 11/19/19 08:39 68 157/80 H 11/19/19 08:00 97 11/19/19 07:20 97.6 F 68 20 157/80 H 97 Weight Weight 135 lb 3 oz I&O: 11/18/19 11/19/19 11/20/19 06:59 06:59 06:59 Intake Total 1860 600 Balance 1860 600 Result Diagrams: 11/19/19 05:36 11/19/19 05:36 Hospitalist ROS - Medication Medications: Active Medications Generic Name Dose Route Start Last Admin Trade Name Freq PRN Reason Stop Dose Admin Acetaminophen 650 mg 11/16/19 04:51 11/17/19 10:36 Tylenol PO 650 mg Q4H PRN Administration Headache/Fever/Mild Pain (1-3) Amlodipine Besylate 10 mg 11/17/19 09:00 11/19/19 08:39 Norvasc PO 10 mg DAILY SILVINO Administration Apixaban 2.5 mg 11/17/19 09:00 11/19/19 08:38 Eliquis PO 2.5 mg BID SILVINO Administration Calcium Carbonate 1,200 mg 11/17/19 09:00 11/19/19 08:38 Caltrate PO 1,200 mg DAILY SILVINO Administration Cholecalciferol 1,000 units 11/17/19 09:00 11/19/19 08:39 Vitamin D3 PO 1,000 units DAILY SILVINO Administration Cyanocobalamin 1,000 mcg 11/17/19 09:00 11/19/19 08:39 Vitamin B-12 PO 1,000 mcg DAILY SILVINO Administration Donepezil HCl 10 mg 11/17/19 21:00 11/18/19 21:32 Aricept PO 10 mg HS SILVINO Administration Escitalopram Oxalate 10 mg 11/17/19 09:00 11/19/19 08:39 Lexapro PO 10 mg DAILY SILVINO Administration Ceftriaxone Sodium 1 gm/ 100 mls @ 200 mls/hr 11/16/19 06:00 11/19/19 06:13 Sodium Chloride IVPB 100 mls 0600 SILVINO Administration Iron/Minerals/Multivitamins 1 tab 11/17/19 09:00 11/19/19 08:39 Theragran M PO 1 tab DAILY SILVINO Administration Levetiracetam 500 mg 11/16/19 09:00 11/19/19 08:38 Keppra PO 500 mg BID SILVINO Administration Memantine 10 mg 11/17/19 09:00 11/19/19 08:38 Namenda PO 10 mg BID SILVINO Administration Metformin HCl 500 mg 11/17/19 09:00 11/19/19 08:38 Glucophage PO 500 mg BID SILVINO Administration Metoprolol Succinate 50 mg 11/17/19 21:00 11/18/19 21:32 Toprol Xl PO 50 mg HS SILVINO Administration Sodium Chloride 10 ml 11/16/19 09:00 11/19/19 08:39 Flush - Normal Saline IVF 10 ml Q12HR SILVINO Administration Temazepam 15 mg 11/18/19 20:41 11/18/19 21:33 Restoril PO 15 mg HSPRN PRN Administration Insomnia - Exam General Appearance: awake alert Neck: no JVD Heart: RRR, no murmur Respiratory: CTAB Gastrointestinal: soft, non-distended, normal bowel sounds Extremities: no edema Hosp A/P (1) Dementia Code(s): F03.90 - UNSPECIFIED DEMENTIA WITHOUT BEHAVIORAL DISTURBANCE Status: Acute Qualifiers: Alzheimer's disease onset: late-onset Dementia behavioral disturbance: without behavioral disturbance (2) Atrial fibrillation Code(s): I48.91 - UNSPECIFIED ATRIAL FIBRILLATION Status: Chronic Qualifiers: Atrial fibrillation type: longstanding persistent Qualified Code(s): I48.11 - Longstanding persistent atrial fibrillation (3) Seizure Code(s): R56.9 - UNSPECIFIED CONVULSIONS Status: Acute (4) Alzheimer disease Code(s): G30.9 - ALZHEIMER'S DISEASE, UNSPECIFIED; F02.80 - DEMENTIA IN OTH DISEASES CLASSD ELSWHR W/O BEHAVRL DISTURB Status: Chronic (5) HTN (hypertension) Code(s): I10 - ESSENTIAL (PRIMARY) HYPERTENSION Status: Chronic Qualifiers: Hypertension type: essential hypertension Qualified Code(s): I10 - Essential (primary) hypertension (6) DM type 2 (diabetes mellitus, type 2) Status: Chronic Qualifiers: Diabetes mellitus vermin exterminator insulin use: without vermin exterminator use Diabetes mellitus complication status: without complication Qualified Code(s): E11.9 - Type 2 diabetes mellitus without complications (7) Lumbar compression fracture Code(s): S32.000A - WEDGE COMPRESSION FRACTURE OF UNSP LUMBAR VERTEBRA, INIT Status: Acute - Plan needs PT/OT for comp fx cont antiseizure medcont DM/Cardiac meds
[2019-11-19] MEDS: Donepezil HCl 10 MG TAB PO SCH (21:14)
[2019-11-19] MEDS: Temazepam 15 MG CAP PO PRN (21:16)
[2019-11-20] MEDS: cefTRIAXone\\ROCEPHIN 1 GM in Sodium Chloride 0.9% 100 ML IVPB SCH (05:45)
[2019-11-20] MEDS: levETIRAcetam 500 MG TAB PO SCH (08:53)
[2019-11-20] MEDS: Apixaban 2.5 MG TAB PO SCH (08:54)
[2019-11-20] MEDS: Escitalopram Oxalate 10 mg Tablet PO SCH (08:54)
[2019-11-20] MEDS: Amlodipine 10 MG TAB PO SCH (08:54)
[2019-11-20] MEDS: Cholecalciferol 1,000 UNITS (25 MCG) TAB PO SCH (08:54)
[2019-11-20] MEDS: Cyanocobalamin (Vitamin B-12) 1,000 MCG TAB PO SCH (08:54)
[2019-11-20] MEDS: Calcium Carbonate 600 MG TAB PO SCH (08:55)
[2019-11-20] MEDS: metFORMIN 500 MG TAB PO SCH (08:55)
[2019-11-20] MEDS: Multivitamin W/ Minerals 1 TAB PO SCH (08:55)
--- NOTE | 2019-11-20 13:34 | PDOC.HOSPP ---
- Subjective Encounter Date: 11/20/19 Subjective: NEUROLOGY PROGRESS NOTE Patient alert, awake and following commands . No acute events or seizures overnight. - Objective Vital Signs & Weight: Vital Signs (12 hours) Temp Pulse Resp BP BP Pulse Ox 11/20/19 12:32 97.5 F L 61 18 111/68 96 11/20/19 08:54 63 162/74 H 11/20/19 08:00 98.1 F 11/20/19 07:37 98.1 F 63 18 162/74 H 96 Weight Weight 135 lb 3 oz I&O: 11/19/19 11/20/19 11/21/19 06:59 06:59 06:59 Intake Total 600 360 480 Balance 600 360 480 Result Diagrams: 11/19/19 05:36 11/19/19 05:36 Radiology Reviewed by me: Yes EKG Reviewed by me: Yes Hospitalist ROS - Review of Systems Constitutional: denies: fever, chills, sweats, weakness, malaise, other Eyes: denies: pain, vision change, conjunctivae inflammation, eyelid inflammation, redness, other ENT: denies: ear pain, ear discharge, nose pain, nose discharge, nose congestion , mouth pain, mouth swelling, throat pain, throat swelling, other Respiratory: denies: cough, dry, shortness of breath, hemoptysis, SOB with excertion, pleuritic pain, sputum, wheezing, other Cardiovascular: denies: chest pain, palpitations, orthopnea, paroxysmal noc. dyspnea, edema, light headedness, other Gastrointestinal: denies: nausea, vomiting, abdominal pain, diarrhea, constipation, melena, hematochezia, other Genitourinary: reports: dysuria, frequency. denies: incontinence, hematuria, retention, other Musculoskeletal: denies: neck pain, shoulder pain, arm pain, back pain, hand pain, leg pain, foot pain, other Skin: denies: rash, lesions, janki, bruising, other Neurological: reports: confusion. denies: weakness, numbness, incoordination, change in speech, seizures, other - Medication Medications: Active Medications Generic Name Dose Route Start Last Admin Trade Name Freq PRN Reason Stop Dose Admin Acetaminophen 650 mg 11/16/19 04:51 11/17/19 10:36 Tylenol PO 650 mg Q4H PRN Administration Headache/Fever/Mild Pain (1-3) Amlodipine Besylate 10 mg 11/17/19 09:00 11/20/19 08:54 Norvasc PO 10 mg DAILY SILVINO Administration Apixaban 2.5 mg 11/17/19 09:00 11/20/19 08:54 Eliquis PO 2.5 mg BID SILVINO Administration Calcium Carbonate 1,200 mg 11/17/19 09:00 11/20/19 08:55 Caltrate PO 1,200 mg DAILY SILVINO Administration Cholecalciferol 1,000 units 11/17/19 09:00 11/20/19 08:54 Vitamin D3 PO 1,000 units DAILY SILVINO Administration Cyanocobalamin 1,000 mcg 11/17/19 09:00 11/20/19 08:54 Vitamin B-12 PO 1,000 mcg DAILY SILVINO Administration Donepezil HCl 10 mg 11/17/19 21:00 11/19/19 21:14 Aricept PO 10 mg HS SILVINO Administration Escitalopram Oxalate 10 mg 11/17/19 09:00 11/20/19 08:54 Lexapro PO 10 mg DAILY SILVINO Administration Ceftriaxone Sodium 1 gm/ 100 mls @ 200 mls/hr 11/16/19 06:00 11/20/19 05:45 Sodium Chloride IVPB 100 mls 0600 SILVINO Administration Iron/Minerals/Multivitamins 1 tab 11/17/19 09:00 11/20/19 08:55 Theragran M PO 1 tab DAILY SILVINO Administration Levetiracetam 500 mg 11/16/19 09:00 11/20/19 08:53 Keppra PO 500 mg BID SILVINO Administration Memantine 10 mg 11/17/19 09:00 11/20/19 08:54 Namenda PO 10 mg BID SILVINO Administration Metformin HCl 500 mg 11/17/19 09:00 11/20/19 08:55 Glucophage PO 500 mg BID SILVINO Administration Metoprolol Succinate 50 mg 11/17/19 21:00 11/19/19 21:14 Toprol Xl PO 50 mg HS SILVINO Administration Sodium Chloride 10 ml 11/16/19 09:00 11/20/19 08:55 Flush - Normal Saline IVF 10 ml Q12HR SILVINO Administration Temazepam 15 mg 11/18/19 20:41 11/19/19 21:16 Restoril PO 15 mg HSPRN PRN Administration Insomnia - Exam General Appearance: awake alert Eye: PERRL ENT: normocephalic atraumatic Neck: supple Heart: RRR Respiratory: CTAB Gastrointestinal: soft Extremities: no cyanosis Skin: normal turgor Neurological: cranial nerve grossly intact, normal sensation to touch, no focal deficits, no new deficit Musculoskeletal: generalized weakness Psychiatric: A&O x 3 Hosp A/P (1) Altered mental status Code(s): R41.82 - ALTERED MENTAL STATUS, UNSPECIFIED Status: Acute (2) Atrial fibrillation Code(s): I48.91 - UNSPECIFIED ATRIAL FIBRILLATION Status: Chronic Qualifiers: Atrial fibrillation type: longstanding persistent Qualified Code(s): I48.11 - Longstanding persistent atrial fibrillation (3) Seizure Code(s): R56.9 - UNSPECIFIED CONVULSIONS Status: Acute (4) HTN (hypertension) Code(s): I10 - ESSENTIAL (PRIMARY) HYPERTENSION Status: Chronic Qualifiers: Hypertension type: essential hypertension Qualified Code(s): I10 - Essential (primary) hypertension (5) Hyponatremia Code(s): E87.1 - HYPO-OSMOLALITY AND HYPONATREMIA Status: Acute - Plan PT/OT 83 year old presented with altered mental status and new onset seizure. No seizures since admission. She is tolerating Keppra well and reported no side- effects. MRI brain reviewed which was negative for acute process. EEG abnormal. Continue Keppra for seizure prophylaxis. Observe seizure precautions. Continue PT/OT Ativan 2 mg IV for seizure greater than 2 minutes. Neurochecks every 4 hours. Continue home medications. Continue medical management per primary team. Plan discussed with the patient
[2019-11-20 17:12] VITALS: BP 136/79; TEMP 97.4
--- NOTE | 2019-11-21 07:03 | DIS ---
DATE OF ADMISSION: 11/16/2019 DATE OF DISCHARGE: 11/20/2019 PRIMARY CARE PROVIDER: Susana Trevino NP FINAL DIAGNOSES: 1. Altered mental status, resolved. 2. Seizure disorder. 3. Dementia, Alzheimer's variety. 4. Atrial fibrillation, chronic. 5. Hypertension. 6. Acute respiratory failure, resolved. 7. Urinary tract infection. 8. Atrial fibrillation with controlled ventricular response. 9. Diabetes mellitus type 2. 10. Her urinary tract infection was Escherichia coli. It has been adequately treated. DISCHARGE MEDICATIONS: New, 1. Keppra 500 mg p.o. b.i.d. Old, 1. Metoprolol 50 mg a day. 2. Metformin 500 mg twice a day. 3. Escitalopram 10 mg a day. 4. Memantine 10 mg twice a day. 5. Vitamin B12 1000 p.o. a day. 6. Donepezil 10 mg a day. 7. Amlodipine 10 mg a day. 8. Eliquis 2.5 mg twice a day. ALLERGIES: 1. CHLORPHENIRAMINE. 2. SULFA. DIET: Diabetic. CODE STATUS: Full resuscitation. PENDING AT TIME OF DISCHARGE: Nothing. HOSPITAL COURSE: She was seen in consultation by Dr. Lissett Jc, Neurology. The patient was admitted through the emergency room. She was oriented only to person. Multiple medical problems. The patient has a history of dementia. She was admitted with altered mental status, atrial fibrillation, hypertension, Alzheimer disease, diabetes mellitus type 2, hyponatremia. The patient was started on Keppra. Neurology was consulted, EEG, EMG, potentially epileptic, Dr. Jc. She agreed with continuing the Keppra, neuro checks. Her brain CT, no acute intracranial process. Chest x-ray, no cardiomegaly, CHF, or infiltrate. Brain MRI was unremarkable. CT of the chest and thorax, no pulmonary embolism, pneumonia, etc. Initial CBC was unremarkable as were two followups. D-dimer was high at 0.44. Initial sodium 128. BUN and creatinine abnormal. Her sodium varied from 133 to 135. BUN and creatinine remain normal. Vitamin B12 was 1718. Prolactin was 10.27. COVID test was normal. The patient had a fall during her hospital stay. She had a lumbar spine x-ray, which revealed compression fractures at T11, L1, L5. No retropulsion. The patient was seen by Physical Therapy, did well, ambulating without assistance. She is being discharged home to follow up with PCP in 7 days. She needs to have followup arranged with Dr. Lissett Jc, after being seen by primary care. Job ID: [id number]
--- NOTE | 2019-11-21 11:54 | PQF ---
CLINICAL DOCUMENTATION CLARIFICATION FORM: Dear : ____Suhail Simmons DateTime:_11/19/2019 Please exercise your independent, professional judgment in responding to the clarification form. Clinical indicators are provided on the bottom of this form for your review Please check appropriate box(es): [ ] AMS due to UTI [ ] AMS due to Seizure disorder [ ] AMS due to Hyponatremia [ ] Other diagnosis [ x ] Unable to determine Physician Signature: Date/Time: For continuity of documentation, please document condition throughout progress notes and discharge summary. Thank You. To be completed by CDI/Coding staff for physician review: w Present w Clinical Indicators - Signs / Symptoms / Labs w Results and Location in Medical Record w [x ] w Altered mental state-possible witness seizure w H&P, 11/15,Javier Lemos MD w [x ] w r/o metabolic encephalopathy with cmp, tsh,b12 and ammonia w H&P, 11/15, Javier Rico MD w [x ] w Admitted with altered mental status, afib, HTN, Alzheimer disease, DM2, Hyponatremia w , 11/19, Suhail Simmons MD w w w w Present w Risk Factors w Results and Location in Medical Record w [x ] w UTI w DS, 11/19, Suhail Simmons MD w [ x] w Seizure disorder w , 11/19, Suhail Simmons MD w w w w w w w Present w Treatments w Results and Location in Medical Record w [x ] w Keppra w , 11/19, Suhail Simmons MD w [ x ] w Neurology consult w , 11/19, Suhail Simmons MD w [ x ] w Ceftriaxone.IV w JUL, 11/15 w [ x] w Sodium chloride.IV w 11/15 CDS/Joint Cutter Signature: Óscar Brink Phone #: [phone] Date/Time:_11/21/2019 This is a permanent part of the Medical Record [facility]
== END 2019-11-20 18:11 | disposition home or self-care (01) | DRG 947 ==
LOC: ERS 02:26 → T4-B 04:08
PROVIDERS: ADMIT Internal Medicine; ATTEND Internal Medicine
DX: R41.82 Altered mental status, unspecified (principal); J96.01 Acute respiratory failure with hypoxia; S32.009A Unspecified fracture of unspecified lumbar vertebra, initial encounter for closed fracture; I48.20 Chronic atrial fibrillation, unspecified; N39.0 Urinary tract infection, site not specified; E87.1 Hypo-osmolality and hyponatremia; G40.909 Epilepsy, unspecified, not intractable, without status epilepticus; E11.9 Type 2 diabetes mellitus without complications; B96.20 Unspecified Escherichia coli [E. coli] as the cause of diseases classified elsewhere; G30.9 Alzheimer's disease, unspecified; I10 Essential (primary) hypertension; F02.80 Dementia in other diseases classified elsewhere, unspecified severity, without behavioral disturbance, psychotic disturbance, mood disturbance, and anxiety; Z79.01 Long term (current) use of anticoagulants; Z88.2 Allergy status to sulfonamides; Z88.8 Allergy status to other drugs, medicaments and biological substances; W18.39XA Other fall on same level, initial encounter
CPT/HCPCS: 36415; 51701; 70450; 70551; 71045; 71275; 72100; 80048; 80053; 81003; 81015; 82140; 82607; 83605; 83930; 84146; 84443; 84484; 85007; 85025; 85027; 85379; 87040; 87077; 87086; 87186; 93005; 95712; 95816; 95819; 95957; 96361; 96365; 96375; J0696; J2405; J3490; Q9967; U0002

== ENCOUNTER 2021-01-17 12:10 | Outpatient (CLI) | payer MEDICARE | END 2021-01-17 12:11 | disposition home or self-care (01) | LOC: BICMAMMO 12:10 | PROVIDERS: ATTEND Family Medicine | DX: Z12.31 Encounter for screening mammogram for malignant neoplasm of breast (principal); Z91.89 Other specified personal risk factors, not elsewhere classified | CPT/HCPCS: 77063; 77067 ==

== ENCOUNTER 2021-03-26 10:43 | Inpatient (IN) | payer OTHER, MEDICARE ==
[2021-03-26 12:09] LABS: #Eosinphils 0.3 thou/uL (0.0-0.7); #Lymphocytes 1.2 thou/uL (1.20-3.40); #Monocytes 0.4 thou/uL (0.11-0.59); #Neutrophils 6.4 thou/uL (1.40-6.50); %Basophils 0.5 % (0.0-1.0); %Eosinophils 3.2 % (0.0-10.0); %Lymphocytes 14.5 % (21.0-51.0); %Monocytes 5.3 % (0.0-10.0); %Neutrophils 76.5 % (42.0-75.0); Hemoglobin 12.6 g/dL (12.0-16.0); Mean Corpuscular HGB CONC 33.5 g/dL (32.0-36.0); Mean Corpuscular Hemoglobin 26.8 pg (27.0-31.0); Platelet Count 245 thou/uL (130-400); RBC Distribution Width 12.4 % (11.5-14.5); Red Blood Cell (RBC) Count 4.69 mill/uL (4.20-5.40); White Blood Cell (WBC) Count 8.4 thou/uL (4.8-10.8)
[2021-03-26 12:22] LABS: INR-International Normal Ratio 1.4; PTT 30.3 sec (22.9-36.1); Prothrombin Time 17.2 sec (12.0-14.7)
[2021-03-26 12:31] LABS: ALT (SGPT) 12 U/L (8-55); AST (SGOT) 16 U/L (5-34); Albumin 3.7 g/dL (3.4-4.8); Alkaline Phosphatase 60 U/L (40-110); Anion Gap 10 mmol/L (10-20); BUN (Urea Nitrogen) 14 mg/dL (9.8-20.1); Bilirubin, Total 0.5 mg/dL (0.2-1.2); Calc. Creatinine Clearance 0 mL/min (70-130); Calcium 9.2 mg/dL (7.8-10.44); Carbon Dioxide 27 mmol/L (23-31); Chloride 101 mmol/L (98-107); Globulin 2.1 g/dL (2.4-3.5); Glucose 145 mg/dL (83-110); Potassium 4.3 mmol/L (3.5-5.1); Protein, Total 5.8 g/dL (5.8-8.1); Sodium 134 mmol/L (136-145)
[2021-03-26] MEDS ORDERED: Morphine 4 MG/ML VIAL ONE (12:50)
[2021-03-26] MEDS ORDERED: Ondansetron PF 4 MG/2 ML Vial ONE (12:50)
[2021-03-26] MEDS ORDERED: Ondansetron PF 4 MG/2 ML Vial IVP PRN (14:09)
[2021-03-26] MEDS ORDERED: Dextrose 5% in Water 1,000 ML IV PRN (14:09)
[2021-03-26] MEDS ORDERED: Dextrose 50% Abboject 50 ML SYRINGE SLOW IVP PRN (14:09)
[2021-03-26] MEDS ORDERED: Morphine 2 MG/ML VIAL SLOW IVP PRN (14:09)
[2021-03-26] MEDS ORDERED: Morphine 4 MG/ML VIAL SLOW IVP PRN (14:30)
[2021-03-26] MEDS ORDERED: Communication Order-Pharmacy FS PRN (14:49)
[2021-03-26] MEDS ORDERED: ceFAZolin Sodium (SDC) 2 GM in Premix Bag 1 BAG IVPB SCH (15:30)
[2021-03-26] MEDS ORDERED: Acetaminophen 500 MG TAB PO SCH (16:45)
[2021-03-26] MEDS ORDERED: Ketorolac Tromethamine 30 MG/ML VIAL IVP PRN (17:38)
[2021-03-26] MEDS ORDERED: Acetaminophen 325 MG TAB PO SCH (17:45)
[2021-03-26] MEDS ORDERED: FLU VACC QS2021-22(65YR UP)/PF 240 MCG/0.7 ML SYRINGE IM ONE (17:45)
[2021-03-26] MEDS: Acetaminophen/Codeine 30-300mg Tablet PO SCH ×2 (18:14→23:09)
[2021-03-26] MEDS: Famotidine 20 MG TAB PO SCH (20:54)
[2021-03-27] MEDS: Cyclobenzaprine 10 MG TAB PO PRN ×2 (03:52→23:13)
[2021-03-27 04:56] LABS: #Eosinphils 0.2 thou/uL (0.0-0.7); #Lymphocytes 1.1 thou/uL (1.20-3.40); #Monocytes 0.7 thou/uL (0.11-0.59); #Neutrophils 6.8 thou/uL (1.40-6.50); %Basophils 0.4 % (0.0-1.0); %Eosinophils 2.6 % (0.0-10.0); %Monocytes 7.7 % (0.0-10.0); %Neutrophils 77.3 % (42.0-75.0); Hemoglobin 11.7 g/dL (12.0-16.0); Mean Corpuscular HGB CONC 33.3 g/dL (32.0-36.0); Mean Corpuscular Hemoglobin 26.6 pg (27.0-31.0); Mean Platelet Volume 7.2 fL (7.4-10.4); Platelet Count 238 thou/uL (130-400); RBC Distribution Width 12.4 % (11.5-14.5); Red Blood Cell (RBC) Count 4.38 mill/uL (4.20-5.40); White Blood Cell (WBC) Count 8.8 thou/uL (4.8-10.8)
[2021-03-27 05:12] LABS: INR-International Normal Ratio 1.2; PTT 31.6 sec (22.9-36.1); Prothrombin Time 15.2 sec (12.0-14.7)
[2021-03-27 05:19] LABS: Anion Gap 11 mmol/L (10-20); BUN (Urea Nitrogen) 16 mg/dL (9.8-20.1); Calc. Creatinine Clearance 0 mL/min (70-130); Calcium 8.7 mg/dL (7.8-10.44); Carbon Dioxide 24 mmol/L (23-31); Chloride 100 mmol/L (98-107); Glucose 124 mg/dL (83-110); Potassium 4.2 mmol/L (3.5-5.1); Sodium 131 mmol/L (136-145)
[2021-03-27] MEDS: Acetaminophen/Codeine 30-300mg Tablet PO SCH ×4 (05:55→23:13)
[2021-03-27] MEDS: Escitalopram Oxalate 10 mg Tablet PO SCH ×2 (09:08→19:52)
[2021-03-27] MEDS: Famotidine 20 MG TAB PO SCH ×2 (09:08→19:51)
[2021-03-27] MEDS: Amlodipine 10 MG TAB PO SCH (09:08)
[2021-03-27] MEDS ORDERED: hydrALAZINE 20 MG/ML VIAL SLOW IVP PRN (10:03)
[2021-03-27] MEDS: Senokot S 8.6-50 MG TAB PO SCH (19:51)
[2021-03-27] MEDS: Donepezil HCl 10 MG TAB PO SCH (19:52)
[2021-03-28 00:25] LABS: SARS-CoV-2 PCR by NAA Not Detected (NotDetected)
[2021-03-28] MEDS: Acetaminophen/Codeine 30-300mg Tablet PO SCH ×3 (05:46→19:23)
[2021-03-28] MEDS ORDERED: Bupivacaine PF 0.5% 30 ML VIAL ONE (06:04)
[2021-03-28] MEDS ORDERED: Metoprolol Tartrate 5 MG/5 ML VIAL ONE (06:04)
[2021-03-28] MEDS ORDERED: CEFAZOLIN 2 GM, Admixture Fee 1 EACH in Sodium Chloride 0.9% 100 ML IVPB SCH (06:30)
[2021-03-28] MEDS ORDERED: Fentanyl 250 MCG/5 ML VIAL ONE (07:30)
[2021-03-28] MEDS ORDERED: CEFAZOLIN 2 GM in Premix Bag 1 BAG IVPB SCH (08:00)
[2021-03-28] MEDS ORDERED: Rocuronium Bromide 10 MG/ML (10ML VIAL) ONE (08:10)
[2021-03-28] MEDS ORDERED: Lidocaine 1% PF 5 ML VIAL ONE (08:10)
[2021-03-28] MEDS ORDERED: PROPOFOL 200 MG/20 ML VIAL ONE (08:10)
[2021-03-28] MEDS ORDERED: Glycopyrrolate 0.2 MG/ML 5 ML SYRINGE ONE (08:10)
[2021-03-28] MEDS ORDERED: PHENYLEPHRINE-NS 100 MCG/ML 10 ML SYRINGE ONE (08:10)
[2021-03-28] MEDS ORDERED: Dexamethasone 20 MG/5 ML VIAL ONE (08:10)
[2021-03-28] MEDS: Amlodipine 10 MG TAB PO SCH (11:13)
[2021-03-28] MEDS: Polyethylene Glycol 3350 17 GM Packet PO SCH (11:14)
[2021-03-28] MEDS: Senokot S 8.6-50 MG TAB PO SCH ×2 (11:15→19:33)
[2021-03-28] MEDS: Escitalopram Oxalate 10 mg Tablet PO SCH ×3 (13:37→19:34)
[2021-03-28] MEDS: CEFAZOLIN 2 GM, Admixture Fee 1 EACH in Sodium Chloride 0.9% 100 ML IVPB SCH (15:31)
[2021-03-28] MEDS: Cyclobenzaprine 10 MG TAB PO PRN (19:33)
[2021-03-28] MEDS: Donepezil HCl 10 MG TAB PO SCH (19:35)
[2021-03-28] MEDS ORDERED: Famotidine 20 MG TAB PO SCH (21:00)
[2021-03-29] MEDS: Acetaminophen/Codeine 30-300mg Tablet PO SCH ×4 (00:03→17:56)
[2021-03-29] MEDS: CEFAZOLIN 2 GM, Admixture Fee 1 EACH in Sodium Chloride 0.9% 100 ML IVPB SCH (00:50)
[2021-03-29] MEDS ORDERED: Melatonin 3 MG TAB PO SCH (01:45)
[2021-03-29] MEDS: Polyethylene Glycol 3350 17 GM Packet PO SCH (08:36)
[2021-03-29] MEDS: Senokot S 8.6-50 MG TAB PO SCH ×2 (08:37→20:18)
[2021-03-29] MEDS: Amlodipine 10 MG TAB PO SCH (08:37)
[2021-03-29] MEDS: Escitalopram Oxalate 10 mg Tablet PO SCH (08:37)
[2021-03-29 08:56] LABS: Hemoglobin 11.4 g/dL (12.0-16.0); Mean Corpuscular HGB CONC 33.5 g/dL (32.0-36.0); Mean Corpuscular Hemoglobin 26.9 pg (27.0-31.0); Mean Corpuscular Volume 80.4 fL (78.0-98.0); Mean Platelet Volume 7.2 fL (7.4-10.4); Platelet Count 250 thou/uL (130-400); RBC Distribution Width 12.4 % (11.5-14.5); Red Blood Cell (RBC) Count 4.24 mill/uL (4.20-5.40); White Blood Cell (WBC) Count 9.2 thou/uL (4.8-10.8)
[2021-03-29 09:05] LABS: Anion Gap 12 mmol/L (10-20); BUN (Urea Nitrogen) 17 mg/dL (9.8-20.1); Calc. Creatinine Clearance 0 mL/min (70-130); Calcium 8.6 mg/dL (7.8-10.44); Carbon Dioxide 26 mmol/L (23-31); Chloride 97 mmol/L (98-107); Glucose 132 mg/dL (83-110); Phosphorus 3.8 mg/dL (2.3-4.7); Potassium 3.9 mmol/L (3.5-5.1); Sodium 131 mmol/L (136-145)
[2021-03-29 09:29] LABS: Lymphocytes 30 % (21-51); MDiff Complete? YES; Monocytes 6 % (0-10); Neutrophil 64 % (42-75); Platelet Morphology Comment Appears Adequate
[2021-03-29] MEDS: Sodium Chloride 1 GM TAB PO SCH ×2 (14:50→22:44)
[2021-03-29] MEDS: Donepezil HCl 10 MG TAB PO SCH (20:19)
[2021-03-30] MEDS: Acetaminophen/Codeine 30-300mg Tablet PO SCH ×4 (00:42→18:28)
[2021-03-30] MEDS: Sodium Chloride 1 GM TAB PO SCH ×3 (05:54→21:21)
[2021-03-30] MEDS: Amlodipine 10 MG TAB PO SCH (08:46)
[2021-03-30] MEDS: Senokot S 8.6-50 MG TAB PO SCH ×2 (08:46→21:18)
[2021-03-30] MEDS: Polyethylene Glycol 3350 17 GM Packet PO SCH (08:46)
[2021-03-30] MEDS ORDERED: levETIRAcetam 500 MG TAB PO SCH (09:00)
[2021-03-30] MEDS ORDERED: Lisinopril 10 MG TAB PO SCH (12:15)
[2021-03-30] MEDS: Ibuprofen 100 MG/5 ML UDCUP PO SCH ×2 (12:26→18:42)
[2021-03-30 18:07] VITALS: BMI 37.2
[2021-03-30] MEDS: Donepezil HCl 10 MG TAB PO SCH (21:21)
[2021-03-30] MEDS: Lisinopril 10 MG TAB PO SCH (21:23)
[2021-03-31] MEDS: Acetaminophen/Codeine 30-300mg Tablet PO SCH ×4 (00:17→18:04)
[2021-03-31] MEDS: Ibuprofen 100 MG/5 ML UDCUP PO SCH ×3 (03:07→18:02)
[2021-03-31] MEDS: Sodium Chloride 1 GM TAB PO SCH ×3 (05:56→19:15)
[2021-03-31] MEDS: Amlodipine 10 MG TAB PO SCH (08:44)
[2021-03-31] MEDS: Senokot S 8.6-50 MG TAB PO SCH ×2 (08:45→19:16)
[2021-03-31] MEDS: Apixaban 5 MG TAB PO SCH ×2 (08:45→19:15)
[2021-03-31] MEDS: Lisinopril 10 MG TAB PO SCH ×2 (08:45→19:16)
[2021-03-31] MEDS: Polyethylene Glycol 3350 17 GM Packet PO SCH (08:45)
[2021-03-31] MEDS: Donepezil HCl 10 MG TAB PO SCH (19:15)
[2021-03-31 19:21] VITALS: BP 143/75; TEMP 98.3
== END 2021-03-31 20:15 | DRG 481 ==
LOC: ERS 10:43 → SJJU 14:09 → SURG A 19:36
PROVIDERS: ADMIT Surgery; ATTEND Surgery
PROC: 0QS706Z Reposition Left Upper Femur with Intramedullary Internal Fixation Device, Open Approach (ICD-10-PCS; principal; 2021-03-28)
DX: S72.142A Displaced intertrochanteric fracture of left femur, initial encounter for closed fracture (principal); E87.1 Hypo-osmolality and hyponatremia; Z20.822 Contact with and (suspected) exposure to COVID-19; E11.9 Type 2 diabetes mellitus without complications; I48.91 Unspecified atrial fibrillation; F41.9 Anxiety disorder, unspecified; F32.A Depression, unspecified; I10 Essential (primary) hypertension; G30.9 Alzheimer's disease, unspecified; F02.80 Dementia in other diseases classified elsewhere, unspecified severity, without behavioral disturbance, psychotic disturbance, mood disturbance, and anxiety; G40.909 Epilepsy, unspecified, not intractable, without status epilepticus; M19.90 Unspecified osteoarthritis, unspecified site; W01.0XXA Fall on same level from slipping, tripping and stumbling without subsequent striking against object, initial encounter; Y92.009 Unspecified place in unspecified non-institutional (private) residence as the place of occurrence of the external cause; Z28.21 Immunization not carried out because of patient refusal; Z90.49 Acquired absence of other specified parts of digestive tract; Z87.891 Personal history of nicotine dependence; Z79.899 Other long term (current) drug therapy; Z79.01 Long term (current) use of anticoagulants; Z79.84 Long term (current) use of oral hypoglycemic drugs
CPT/HCPCS: 36415; 36416; 70450; 72125; 72170; 76000; 80048; 80053; 83735; 84100; 85007; 85025; 85027; 85610; 85730; 93005; 96374; 96375; C1713; J0690; J1100; J1885; J2270; J2405; J2704; J3010; J3490; S0020; U0003; U0005

== ENCOUNTER 2021-04-23 16:02 | Inpatient (IN) | payer MEDICARE ==
[2021-04-23] MEDS ORDERED: Insulin Regular 300 UNITS/3 ML VIAL SC PRN (16:58)
[2021-04-23] MEDS ORDERED: Ondansetron ODT 4 MG TAB PO PRN (16:58)
[2021-04-23] MEDS ORDERED: Dextrose 50% Abboject 50 ML SYRINGE SLOW IVP PRN (16:58)
[2021-04-23] MEDS ORDERED: Dextrose 5% in Water 1,000 ML IV PRN (16:58)
[2021-04-23] MEDS ORDERED: Ondansetron PF 4 MG/2 ML Vial IVP PRN (16:58)
[2021-04-23] MEDS ORDERED: Morphine 4 MG/ML VIAL SLOW IVP PRN ×2 (16:58→17:06)
[2021-04-23] MEDS ORDERED: Cyclobenzaprine 10 MG TAB PO PRN (17:08)
[2021-04-23] MEDS ORDERED: Melatonin 3 MG TAB PO PRN (17:08)
[2021-04-23 17:17] VITALS: BMI 32.3
[2021-04-23] MEDS: Acetaminophen 325 MG TAB PO SCH ×2 (17:37→23:56)
[2021-04-23] MEDS: Melatonin 3 MG TAB PO SCH (21:29)
[2021-04-23] MEDS: Famotidine 20 MG TAB PO SCH (21:29)
[2021-04-23] MEDS: Escitalopram Oxalate 10 mg Tablet PO SCH (21:30)
[2021-04-23] MEDS: Senokot S 8.6-50 MG TAB PO SCH (21:30)
[2021-04-23] MEDS: Donepezil HCl 10 MG TAB PO SCH (21:30)
[2021-04-24 04:28] LABS: #Eosinphils 0.3 thou/uL (0.0-0.7); #Lymphocytes 1.3 thou/uL (1.20-3.40); #Monocytes 0.9 thou/uL (0.11-0.59); %Basophils 0.5 % (0.0-1.0); %Eosinophils 3.4 % (0.0-10.0); %Lymphocytes 17.4 % (21.0-51.0); %Monocytes 11.4 % (0.0-10.0); %Neutrophils 67.1 % (42.0-75.0); Hemoglobin 9.9 g/dL (12.0-16.0); Mean Corpuscular HGB CONC 32.8 g/dL (32.0-36.0); Mean Corpuscular Hemoglobin 26.2 pg (27.0-31.0); Mean Corpuscular Volume 79.9 fL (78.0-98.0); Mean Platelet Volume 6.5 fL (7.4-10.4); Platelet Count 327 thou/uL (130-400); RBC Distribution Width 12.5 % (11.5-14.5); Red Blood Cell (RBC) Count 3.78 mill/uL (4.20-5.40); White Blood Cell (WBC) Count 7.4 thou/uL (4.8-10.8)
[2021-04-24 04:39] LABS: INR-International Normal Ratio 1.8; Prothrombin Time 21.1 sec (12.0-14.7)
[2021-04-24 04:40] LABS: PTT 48.8 sec (22.9-36.1)
[2021-04-24 04:55] LABS: ALT (SGPT) 13 U/L (8-55); AST (SGOT) 18 U/L (5-34); Alkaline Phosphatase 77 U/L (40-110); Anion Gap 12 mmol/L (10-20); BUN (Urea Nitrogen) 20 mg/dL (9.8-20.1); Bilirubin, Total 0.7 mg/dL (0.2-1.2); Calc. Creatinine Clearance 58 mL/min (70-130); Calcium 8.9 mg/dL (7.8-10.44); Carbon Dioxide 27 mmol/L (23-31); Chloride 96 mmol/L (98-107); Globulin 2.4 g/dL (2.4-3.5); Glucose 120 mg/dL (83-110); Magnesium 2.1 mg/dL (1.6-2.6); Phosphorus 3.7 mg/dL (2.3-4.7); Potassium 3.6 mmol/L (3.5-5.1); Protein, Total 5.4 g/dL (5.8-8.1); Sodium 131 mmol/L (136-145)
[2021-04-24] MEDS: Acetaminophen 325 MG TAB PO SCH ×4 (06:32→22:56)
[2021-04-24] MEDS: Insulin Regular 300 UNITS/3 ML VIAL SC PRN (06:53)
[2021-04-24] MEDS: lamoTRIgine 100 MG TAB PO SCH (09:36)
[2021-04-24] MEDS: Famotidine 20 MG TAB PO SCH ×2 (09:36→21:18)
[2021-04-24] MEDS: Ascorbic Acid 500 mg Chewable Tablet PO SCH ×3 (09:36→21:18)
[2021-04-24] MEDS: Escitalopram Oxalate 10 mg Tablet PO SCH ×2 (09:36→21:18)
[2021-04-24] MEDS: Multivitamin W/ Minerals 1 TAB PO SCH (09:36)
[2021-04-24] MEDS: Senokot S 8.6-50 MG TAB PO SCH ×2 (09:36→21:17)
[2021-04-24] MEDS: Polyethylene Glycol 3350 17 GM Packet PO SCH (09:38)
[2021-04-24] MEDS: Amlodipine 10 MG TAB PO SCH (09:38)
[2021-04-24] MEDS: Ferrous Sulfate 325 MG TAB PO SCH ×3 (09:42→21:17)
[2021-04-24 17:28] LABS: SARS-CoV-2 PCR by NAA Not Detected (NotDetected)
[2021-04-24] MEDS: Melatonin 3 MG TAB PO SCH (21:17)
[2021-04-24] MEDS: Donepezil HCl 10 MG TAB PO SCH (21:18)
[2021-04-24] MEDS ORDERED: Sodium Chloride 0.9% 1,000 ML IV SCH (23:00)
[2021-04-25] MEDS: Acetaminophen 325 MG TAB PO SCH ×4 (04:51→23:05)
[2021-04-25] MEDS: Amlodipine 10 MG TAB PO SCH (06:21)
[2021-04-25] MEDS ORDERED: Fentanyl 100 MCG/2 ML VIAL ONE (06:53)
[2021-04-25] MEDS ORDERED: ceFAZolin Sodium/D5W 2 GM in Premix Bag 1 BAG IVPB SCH (07:00)
[2021-04-25] MEDS ORDERED: ceFAZolin 2 GM/DEX 5% 100 ML BAG ONE (07:09)
[2021-04-25] MEDS ORDERED: Dexamethasone 20 MG/5 ML VIAL ONE (07:45)
[2021-04-25] MEDS ORDERED: Lidocaine 1% PF 5 ML VIAL ONE (07:45)
[2021-04-25] MEDS ORDERED: Ondansetron PF 4 MG/2 ML Vial ONE (07:45)
[2021-04-25] MEDS ORDERED: PROPOFOL 200 MG/20 ML VIAL ONE (07:45)
[2021-04-25] MEDS ORDERED: Ondansetron HCl/PF 4 MG/2 ML Vial IVP PRN (10:06)
[2021-04-25] MEDS ORDERED: Promethazine HCl 25 MG/ML VIAL IM PRN (10:06)
[2021-04-25] MEDS ORDERED: Promethazine HCl 25 MG/ML VIAL IVPB PRN (10:06)
[2021-04-25] MEDS ORDERED: Promethazine HCl 25 MG/ML VIAL ONE (10:17)
[2021-04-25] MEDS: Senokot S 8.6-50 MG TAB PO SCH ×2 (12:11→19:54)
[2021-04-25] MEDS: Famotidine 20 MG TAB PO SCH ×2 (12:11→19:53)
[2021-04-25] MEDS: Multivitamin W/ Minerals 1 TAB PO SCH (12:12)
[2021-04-25] MEDS: Polyethylene Glycol 3350 17 GM Packet PO SCH (12:12)
[2021-04-25] MEDS: Ascorbic Acid 500 mg Chewable Tablet PO SCH ×3 (12:12→19:52)
[2021-04-25] MEDS: lamoTRIgine 100 MG TAB PO SCH (12:13)
[2021-04-25] MEDS: Ferrous Sulfate 325 MG TAB PO SCH ×3 (12:13→16:21)
[2021-04-25] MEDS: Insulin Regular 300 UNITS/3 ML VIAL SC PRN ×2 (12:31→16:31)
[2021-04-25] MEDS: Escitalopram Oxalate 10 mg Tablet PO SCH ×2 (12:31→19:53)
[2021-04-25] MEDS: ceFAZolin Sodium/D5W 2 GM in Premix Bag 1 BAG IVPB SCH ×2 (14:36→23:11)
[2021-04-25] MEDS: Melatonin 3 MG TAB PO SCH (19:53)
[2021-04-25] MEDS: Donepezil HCl 10 MG TAB PO SCH (19:53)
[2021-04-25] MEDS: Acetaminophen/Codeine 30-300mg Tablet PO PRN (23:05)
[2021-04-26] MEDS: Acetaminophen 325 MG TAB PO SCH ×4 (05:27→22:14)
[2021-04-26 05:54] LABS: #Lymphocytes 1.2 thou/uL (1.20-3.40); #Monocytes 0.7 thou/uL (0.11-0.59); #Neutrophils 5.3 thou/uL (1.40-6.50); %Basophils 0.2 % (0.0-1.0); %Eosinophils 0.4 % (0.0-10.0); %Lymphocytes 16.3 % (21.0-51.0); %Monocytes 10.3 % (0.0-10.0); %Neutrophils 72.8 % (42.0-75.0); Hemoglobin 8.1 g/dL (12.0-16.0); Mean Corpuscular HGB CONC 33.4 g/dL (32.0-36.0); Mean Corpuscular Hemoglobin 26.2 pg (27.0-31.0); Mean Corpuscular Volume 78.5 fL (78.0-98.0); Mean Platelet Volume 6.3 fL (7.4-10.4); Platelet Count 362 thou/uL (130-400); RBC Distribution Width 12.3 % (11.5-14.5); Red Blood Cell (RBC) Count 3.08 mill/uL (4.20-5.40); White Blood Cell (WBC) Count 7.2 thou/uL (4.8-10.8)
[2021-04-26 06:13] LABS: Anion Gap 12 mmol/L (10-20); BUN (Urea Nitrogen) 21 mg/dL (9.8-20.1); Calc. Creatinine Clearance 52 mL/min (70-130); Calcium 8.1 mg/dL (7.8-10.44); Carbon Dioxide 25 mmol/L (23-31); Chloride 96 mmol/L (98-107); Glucose 104 mg/dL (83-110); Magnesium 2.1 mg/dL (1.6-2.6); Phosphorus 3.6 mg/dL (2.3-4.7); Potassium 3.9 mmol/L (3.5-5.1); Sodium 129 mmol/L (136-145)
[2021-04-26] MEDS: Ferrous Sulfate 325 MG TAB PO SCH ×2 (09:32→17:46)
[2021-04-26] MEDS: Acetaminophen/Codeine 30-300mg Tablet PO PRN (09:32)
[2021-04-26] MEDS: Senokot S 8.6-50 MG TAB PO SCH ×2 (09:32→22:15)
[2021-04-26] MEDS: Famotidine 20 MG TAB PO SCH (09:33)
[2021-04-26] MEDS: lamoTRIgine 100 MG TAB PO SCH (09:33)
[2021-04-26] MEDS: Escitalopram Oxalate 10 mg Tablet PO SCH ×2 (09:34→22:15)
[2021-04-26] MEDS: Ascorbic Acid 500 mg Chewable Tablet PO SCH ×2 (09:34→22:15)
[2021-04-26] MEDS: Multivitamin W/ Minerals 1 TAB PO SCH (09:34)
[2021-04-26] MEDS: Amlodipine 10 MG TAB PO SCH (09:34)
[2021-04-26] MEDS: Polyethylene Glycol 3350 17 GM Packet PO SCH (09:35)
[2021-04-26] MEDS: Melatonin 3 MG TAB PO SCH (22:14)
[2021-04-26] MEDS: Donepezil HCl 10 MG TAB PO SCH (22:16)
[2021-04-27] MEDS: Acetaminophen 325 MG TAB PO SCH ×3 (05:38→17:28)
[2021-04-27 06:10] LABS: #Eosinphils 0.1 thou/uL (0.0-0.7); #Lymphocytes 1.2 thou/uL (1.20-3.40); #Monocytes 0.7 thou/uL (0.11-0.59); #Neutrophils 5.4 thou/uL (1.40-6.50); %Basophils 0.4 % (0.0-1.0); %Eosinophils 1.3 % (0.0-10.0); %Monocytes 9.9 % (0.0-10.0); %Neutrophils 72.3 % (42.0-75.0); Hemoglobin 7.7 g/dL (12.0-16.0); Mean Corpuscular HGB CONC 33.6 g/dL (32.0-36.0); Mean Corpuscular Hemoglobin 26.4 pg (27.0-31.0); Mean Corpuscular Volume 78.6 fL (78.0-98.0); Mean Platelet Volume 6.1 fL (7.4-10.4); Platelet Count 350 thou/uL (130-400); RBC Distribution Width 12.3 % (11.5-14.5); Red Blood Cell (RBC) Count 2.91 mill/uL (4.20-5.40); White Blood Cell (WBC) Count 7.4 thou/uL (4.8-10.8)
[2021-04-27] MEDS: Ascorbic Acid 500 mg Chewable Tablet PO SCH ×2 (08:43→21:05)
[2021-04-27] MEDS: Escitalopram Oxalate 10 mg Tablet PO SCH ×2 (08:44→21:06)
[2021-04-27] MEDS: Aspirin 81 mg Enteric Coated Tablet PO SCH ×2 (08:44→21:05)
[2021-04-27] MEDS: Amlodipine 10 MG TAB PO SCH (08:44)
[2021-04-27] MEDS: lamoTRIgine 100 MG TAB PO SCH (08:45)
[2021-04-27] MEDS: Ferrous Sulfate 325 MG TAB PO SCH ×2 (08:46→17:28)
[2021-04-27] MEDS: Senokot S 8.6-50 MG TAB PO SCH ×2 (08:47→21:05)
[2021-04-27] MEDS: Polyethylene Glycol 3350 17 GM Packet PO SCH (08:48)
[2021-04-27] MEDS: Multivitamin W/ Minerals 1 TAB PO SCH (08:48)
[2021-04-27] MEDS: Melatonin 3 MG TAB PO SCH (21:06)
[2021-04-27] MEDS: Donepezil HCl 10 MG TAB PO SCH (21:06)
[2021-04-28] MEDS: Acetaminophen 325 MG TAB PO SCH ×3 (00:53→11:45)
[2021-04-28 05:43] LABS: #Eosinphils 0.3 thou/uL (0.0-0.7); #Lymphocytes 1.3 thou/uL (1.20-3.40); #Monocytes 0.6 thou/uL (0.11-0.59); #Neutrophils 4.8 thou/uL (1.40-6.50); %Basophils 0.4 % (0.0-1.0); %Eosinophils 3.7 % (0.0-10.0); %Monocytes 8.4 % (0.0-10.0); %Neutrophils 68.5 % (42.0-75.0); Hemoglobin 8.1 g/dL (12.0-16.0); Mean Corpuscular HGB CONC 32.8 g/dL (32.0-36.0); Mean Corpuscular Volume 79.1 fL (78.0-98.0); Mean Platelet Volume 6.2 fL (7.4-10.4); Platelet Count 397 thou/uL (130-400); RBC Distribution Width 12.4 % (11.5-14.5); White Blood Cell (WBC) Count 7.1 thou/uL (4.8-10.8)
[2021-04-28] MEDS: Polyethylene Glycol 3350 17 GM Packet PO SCH (08:54)
[2021-04-28] MEDS: Escitalopram Oxalate 10 mg Tablet PO SCH (08:55)
[2021-04-28] MEDS: Ferrous Sulfate 325 MG TAB PO SCH (08:55)
[2021-04-28] MEDS: Multivitamin W/ Minerals 1 TAB PO SCH (08:55)
[2021-04-28] MEDS: Senokot S 8.6-50 MG TAB PO SCH (08:55)
[2021-04-28] MEDS: Amlodipine 10 MG TAB PO SCH (08:55)
[2021-04-28] MEDS: lamoTRIgine 100 MG TAB PO SCH (08:56)
[2021-04-28] MEDS: Ascorbic Acid 500 mg Chewable Tablet PO SCH (08:58)
[2021-04-28] MEDS ORDERED: Apixaban 5 MG TAB PO SCH (09:00)
[2021-04-28 12:03] VITALS: BP 120/64; TEMP 98.7
== END 2021-04-28 14:00 | DRG 470 ==
LOC: SURG B 16:02
PROVIDERS: ADMIT Surgery; ATTEND Surgery
PROC: 0SRS0J9 Replacement of Left Hip Joint, Femoral Surface with Synthetic Substitute, Cemented, Open Approach (ICD-10-PCS; principal; 2021-04-25)
PROC: 0QP704Z Removal of Internal Fixation Device from Left Upper Femur, Open Approach (ICD-10-PCS; 2021-04-25)
DX: T84.89XA Other specified complication of internal orthopedic prosthetic devices, implants and grafts, initial encounter (principal); S72.142K Displaced intertrochanteric fracture of left femur, subsequent encounter for closed fracture with nonunion; Z20.822 Contact with and (suspected) exposure to COVID-19; I10 Essential (primary) hypertension; E11.9 Type 2 diabetes mellitus without complications; I48.91 Unspecified atrial fibrillation; G30.9 Alzheimer's disease, unspecified; F02.80 Dementia in other diseases classified elsewhere, unspecified severity, without behavioral disturbance, psychotic disturbance, mood disturbance, and anxiety; M19.90 Unspecified osteoarthritis, unspecified site; G40.909 Epilepsy, unspecified, not intractable, without status epilepticus; Y83.8 Other surgical procedures as the cause of abnormal reaction of the patient, or of later complication, without mention of misadventure at the time of the procedure; Z79.01 Long term (current) use of anticoagulants; Z79.899 Other long term (current) drug therapy; Z88.2 Allergy status to sulfonamides; Z88.8 Allergy status to other drugs, medicaments and biological substances
CPT/HCPCS: 36415; 36416; 71045; 72170; 80048; 80053; 83735; 84100; 85025; 85610; 85730; 87070; 87205; C1713; C1776; J1100; J1815; J2405; J2550; J2704; J3010; J7050; U0003; U0005

== ENCOUNTER 2021-06-05 09:19 | Inpatient (IN) | payer MEDICARE ==
[2021-06-05] MEDS ORDERED: Ondansetron PF 4 MG/2 ML Vial ONE (10:24)
[2021-06-05] MEDS ORDERED: Fentanyl 100 MCG/2 ML VIAL ONE (10:24)
[2021-06-05 11:52] LABS: #Eosinphils 0.1 thou/uL (0.0-0.7); #Lymphocytes 1.2 thou/uL (1.20-3.40); #Monocytes 0.4 thou/uL (0.11-0.59); #Neutrophils 10.6 thou/uL (1.40-6.50); %Basophils 0.3 % (0.0-1.0); %Eosinophils 0.9 % (0.0-10.0); %Lymphocytes 9.7 % (21.0-51.0); %Monocytes 3.4 % (0.0-10.0); %Neutrophils 85.8 % (42.0-75.0); Hemoglobin 10.5 g/dL (12.0-16.0); Mean Corpuscular HGB CONC 31.9 g/dL (32.0-36.0); Mean Corpuscular Hemoglobin 25.6 pg (27.0-31.0); Mean Corpuscular Volume 80.4 fL (78.0-98.0); Mean Platelet Volume 6.6 fL (7.4-10.4); Platelet Count 346 thou/uL (130-400); RBC Distribution Width 14.8 % (11.5-14.5); White Blood Cell (WBC) Count 12.4 thou/uL (4.8-10.8)
[2021-06-05 12:07] LABS: INR-International Normal Ratio 1.4; PTT 28.8 sec (22.9-36.1); Prothrombin Time 17.4 sec (12.0-14.7)
[2021-06-05 12:13] LABS: ALT (SGPT) 8 U/L (8-55); AST (SGOT) 16 U/L (5-34); Albumin 3.6 g/dL (3.4-4.8); Alkaline Phosphatase 87 U/L (40-110); Anion Gap 14 mmol/L (10-20); BUN (Urea Nitrogen) 11 mg/dL (9.8-20.1); Bilirubin, Total 0.4 mg/dL (0.2-1.2); Calc. Creatinine Clearance 0 mL/min (70-130); Calcium 8.6 mg/dL (7.8-10.44); Carbon Dioxide 25 mmol/L (23-31); Chloride 102 mmol/L (98-107); Globulin 1.7 g/dL (2.4-3.5); Glucose 160 mg/dL (83-110); Potassium 3.9 mmol/L (3.5-5.1); Protein, Total 5.3 g/dL (5.8-8.1); Sodium 137 mmol/L (136-145)
[2021-06-05] MEDS ORDERED: Promethazine HCl 25 MG/ML VIAL ONE (12:21)
[2021-06-05] MEDS ORDERED: Morphine 4 MG/ML VIAL SLOW IVP PRN (12:52)
[2021-06-05] MEDS ORDERED: Ondansetron PF 4 MG/2 ML Vial IVP PRN (12:52)
[2021-06-05] MEDS ORDERED: Dextrose 50% Abboject 50 ML SYRINGE SLOW IVP PRN (12:52)
[2021-06-05] MEDS ORDERED: Dextrose 5% in Water 1,000 ML IV PRN (12:52)
[2021-06-05] MEDS ORDERED: hydrALAZINE 20 MG/ML VIAL SLOW IVP PRN ×2 (12:54→21:28)
[2021-06-05] MEDS ORDERED: Ibuprofen 200 MG TAB PO PRN (13:00)
[2021-06-05] MEDS: Acetaminophen/Codeine 30-300mg Tablet PO SCH ×2 (14:21→17:08)
[2021-06-05 14:33] LABS: Troponin I Less than 0.010 ng/mL (< 0.028)
[2021-06-05 14:41] VITALS: BMI 29.2
[2021-06-05] MEDS: Ferrous Sulfate 325 MG TAB PO SCH (17:08)
[2021-06-05] MEDS: Acetaminophen 325 MG TAB PO SCH (17:08)
[2021-06-05] MEDS ORDERED: Lantus 1000 UNITS/10 ML VIAL SC SCH ×2 (21:00)
[2021-06-05] MEDS ORDERED: hydrALAZINE 25 MG TAB PO SCH (21:30)
[2021-06-05] MEDS: Donepezil HCl 10 MG TAB PO SCH (21:58)
[2021-06-05] MEDS: Escitalopram Oxalate 10 mg Tablet PO SCH (21:58)
[2021-06-05] MEDS: Melatonin 3 MG TAB PO SCH (21:58)
[2021-06-05] MEDS: Ascorbic Acid 500 mg Chewable Tablet PO SCH (21:58)
[2021-06-05] MEDS: Famotidine/PF 20 mg/2ml Vial SLOW IVP SCH (21:58)
[2021-06-05 23:03] LABS: SARS-CoV-2 PCR by NAA DETECTED (NotDetected)
[2021-06-06] MEDS: Acetaminophen 325 MG TAB PO SCH ×4 (01:17→18:09)
[2021-06-06] MEDS: Acetaminophen/Codeine 30-300mg Tablet PO SCH ×4 (01:18→18:07)
[2021-06-06 07:05] LABS: #Lymphocytes 1.7 thou/uL (1.20-3.40); #Monocytes 0.8 thou/uL (0.11-0.59); #Neutrophils 8.2 thou/uL (1.40-6.50); %Basophils 0.1 % (0.0-1.0); %Eosinophils 0.2 % (0.0-10.0); %Lymphocytes 15.8 % (21.0-51.0); %Monocytes 7.5 % (0.0-10.0); %Neutrophils 76.4 % (42.0-75.0); Hemoglobin 9.6 g/dL (12.0-16.0); Mean Corpuscular HGB CONC 31.9 g/dL (32.0-36.0); Mean Corpuscular Hemoglobin 25.7 pg (27.0-31.0); Mean Corpuscular Volume 80.6 fL (78.0-98.0); Mean Platelet Volume 6.7 fL (7.4-10.4); Platelet Count 388 thou/uL (130-400); RBC Distribution Width 14.9 % (11.5-14.5); Red Blood Cell (RBC) Count 3.73 mill/uL (4.20-5.40); White Blood Cell (WBC) Count 10.8 thou/uL (4.8-10.8)
[2021-06-06 07:24] LABS: Anion Gap 13 mmol/L (10-20); BUN (Urea Nitrogen) 15 mg/dL (9.8-20.1); Calc. Creatinine Clearance 54 mL/min (70-130); Calcium 8.7 mg/dL (7.8-10.44); Carbon Dioxide 27 mmol/L (23-31); Chloride 97 mmol/L (98-107); Glucose 111 mg/dL (83-110); Magnesium 2.1 mg/dL (1.6-2.6); Potassium 4.1 mmol/L (3.5-5.1); Sodium 133 mmol/L (136-145)
[2021-06-06 07:28] LABS: Hemoglobin A1c 4.7 % (4.0-6.0)
[2021-06-06] MEDS ORDERED: Sodium Chloride 0.9% 1,000 ML IV SCH (07:45)
[2021-06-06] MEDS ORDERED: Lisinopril 2.5 MG TAB PO SCH (09:00)
[2021-06-06] MEDS ORDERED: Lantus 1000 UNITS/10 ML VIAL SC SCH ×2 (09:00)
[2021-06-06] MEDS: Escitalopram Oxalate 10 mg Tablet PO SCH ×2 (09:40→20:32)
[2021-06-06] MEDS: Famotidine/PF 20 mg/2ml Vial SLOW IVP SCH (09:40)
[2021-06-06] MEDS: lamoTRIgine 100 MG TAB PO SCH (09:40)
[2021-06-06] MEDS: Ascorbic Acid 500 mg Chewable Tablet PO SCH ×2 (09:41→20:31)
[2021-06-06] MEDS: Amlodipine 10 MG TAB PO SCH (09:41)
[2021-06-06] MEDS: Ferrous Sulfate 325 MG TAB PO SCH ×2 (09:41→18:09)
[2021-06-06] MEDS: hydrALAZINE 25 MG TAB PO SCH (20:31)
[2021-06-06] MEDS: Donepezil HCl 10 MG TAB PO SCH (20:32)
[2021-06-06] MEDS: Melatonin 3 MG TAB PO SCH (20:32)
[2021-06-06] MEDS ORDERED: Famotidine/PF 20 mg/2ml Vial SLOW IVP SCH (21:00)
[2021-06-07] MEDS: Acetaminophen 325 MG TAB PO SCH ×4 (00:06→17:33)
[2021-06-07] MEDS: Acetaminophen/Codeine 30-300mg Tablet PO SCH ×4 (00:06→17:41)
[2021-06-07] MEDS ORDERED: Lidocaine 2% Jelly 5 ML TUBE ONE (07:37)
[2021-06-07] MEDS ORDERED: Dexmedetomidine 200 MCG/2 ML VIAL ONE (07:37)
[2021-06-07] MEDS ORDERED: Fentanyl 100 MCG/2 ML VIAL ONE ×3 (07:37→10:01)
[2021-06-07] MEDS ORDERED: ceFAZolin 2 GM/Dextrose 50 ML 2 GM in Premix Bag 1 BAG IVPB SCH (08:00)
[2021-06-07] MEDS ORDERED: Dexamethasone 20 MG/5 ML VIAL ONE (08:08)
[2021-06-07] MEDS ORDERED: Rocuronium Bromide 10 MG/ML (10ML VIAL) ONE (08:08)
[2021-06-07] MEDS ORDERED: PHENYLEPHRINE-NS 100 MCG/ML 10 ML SYRINGE ONE (08:08)
[2021-06-07] MEDS ORDERED: Glycopyrrolate 0.2 MG/ML 5 ML SYRINGE ONE (08:08)
[2021-06-07] MEDS ORDERED: PROPOFOL 200 MG/20 ML VIAL ONE (08:08)
[2021-06-07] MEDS ORDERED: Lidocaine 1% PF 5 ML VIAL ONE (08:08)
[2021-06-07] MEDS ORDERED: ePHEDrine 50 MG/ML VIAL ONE (08:08)
[2021-06-07] MEDS ORDERED: Ondansetron PF 4 MG/2 ML Vial ONE (08:08)
[2021-06-07] MEDS: Ferrous Sulfate 325 MG TAB PO SCH ×2 (08:11→17:33)
[2021-06-07] MEDS: Amlodipine 10 MG TAB PO SCH (08:11)
[2021-06-07] MEDS: Escitalopram Oxalate 10 mg Tablet PO SCH ×2 (08:11→21:15)
[2021-06-07] MEDS: Ascorbic Acid 500 mg Chewable Tablet PO SCH ×2 (08:11→21:15)
[2021-06-07] MEDS: Senokot S 8.6-50 MG TAB PO SCH ×2 (08:13→21:15)
[2021-06-07] MEDS: hydrALAZINE 25 MG TAB PO SCH (08:13)
[2021-06-07] MEDS: lamoTRIgine 100 MG TAB PO SCH (08:13)
[2021-06-07] MEDS: Polyethylene Glycol 3350 17 GM Packet PO SCH (08:13)
[2021-06-07] MEDS ORDERED: Morphine 4 MG/ML VIAL SLOW IVP SCH (08:45)
[2021-06-07] MEDS ORDERED: Lisinopril 2.5 MG TAB PO SCH (09:00)
[2021-06-07] MEDS ORDERED: Apixaban 5 MG TAB PO SCH (09:00)
[2021-06-07] MEDS ORDERED: Lidocaine 1% (PF) 30 ML VIAL ONE (09:59)
[2021-06-07] MEDS: Pregabalin 25 MG CAP PO SCH ×2 (10:06→21:14)
[2021-06-07] MEDS ORDERED: Acetaminophen/Codeine 30-300mg Tablet PO SCH (12:00)
[2021-06-07] MEDS ORDERED: Acetaminophen 325 MG TAB PO SCH (12:00)
[2021-06-07] MEDS: Ibuprofen 200 MG TAB PO SCH ×2 (15:17→21:14)
[2021-06-07] MEDS: ceFAZolin 2 GM/Dextrose 50 ML 2 GM in Premix Bag 1 BAG IVPB SCH ×2 (15:55→21:16)
[2021-06-07] MEDS: Insulin Regular 300 UNITS/3 ML VIAL SC PRN (18:01)
[2021-06-07] MEDS ORDERED: Lisinopril 10 MG TAB PO SCH ×2 (21:00)
[2021-06-07] MEDS: Donepezil HCl 10 MG TAB PO SCH (21:13)
[2021-06-07] MEDS: Melatonin 3 MG TAB PO SCH (21:13)
[2021-06-08] MEDS: Acetaminophen 325 MG TAB PO SCH ×4 (00:45→16:58)
[2021-06-08] MEDS: Acetaminophen/Codeine 30-300mg Tablet PO SCH ×3 (00:46→12:04)
[2021-06-08 05:21] LABS: #Lymphocytes 1.4 thou/uL (1.20-3.40); #Monocytes 1.1 thou/uL (0.11-0.59); #Neutrophils 10.1 thou/uL (1.40-6.50); %Basophils 0.1 % (0.0-1.0); %Lymphocytes 11.3 % (21.0-51.0); %Monocytes 8.8 % (0.0-10.0); %Neutrophils 79.9 % (42.0-75.0); Hemoglobin 6.2 g/dL (12.0-16.0); Mean Corpuscular HGB CONC 32.2 g/dL (32.0-36.0); Mean Corpuscular Hemoglobin 25.9 pg (27.0-31.0); Mean Corpuscular Volume 80.3 fL (78.0-98.0); Mean Platelet Volume 6.9 fL (7.4-10.4); Platelet Count 312 thou/uL (130-400); RBC Distribution Width 14.5 % (11.5-14.5); Red Blood Cell (RBC) Count 2.39 mill/uL (4.20-5.40); White Blood Cell (WBC) Count 12.6 thou/uL (4.8-10.8)
[2021-06-08] MEDS: Ibuprofen 200 MG TAB PO SCH ×2 (05:22→14:40)
[2021-06-08 05:46] LABS: Anion Gap 11 mmol/L (10-20); BUN (Urea Nitrogen) 21 mg/dL (9.8-20.1); Calc. Creatinine Clearance 45 mL/min (70-130); Calcium 7.8 mg/dL (7.8-10.44); Carbon Dioxide 25 mmol/L (23-31); Chloride 99 mmol/L (98-107); Glucose 125 mg/dL (83-110); Magnesium 1.8 mg/dL (1.6-2.6); Potassium 3.8 mmol/L (3.5-5.1); Sodium 131 mmol/L (136-145)
[2021-06-08] MEDS ORDERED: Sodium Chloride 0.9% 500 ML IV SCH (06:45)
[2021-06-08] MEDS ORDERED: Magnesium Sulfate 4 GM in Sodium Chloride 0.9% 250 ML 250 ML IV SCH (06:45)
[2021-06-08 07:00] LABS: #Lymphocytes 1.6 thou/uL (1.20-3.40); #Monocytes 1.1 thou/uL (0.11-0.59); #Neutrophils 9.9 thou/uL (1.40-6.50); %Basophils 0.2 % (0.0-1.0); %Eosinophils 0.1 % (0.0-10.0); %Lymphocytes 12.4 % (21.0-51.0); %Monocytes 8.7 % (0.0-10.0); %Neutrophils 78.5 % (42.0-75.0); Hemoglobin 6.1 g/dL (12.0-16.0); Mean Corpuscular HGB CONC 32.9 g/dL (32.0-36.0); Mean Corpuscular Hemoglobin 26.6 pg (27.0-31.0); Mean Platelet Volume 6.7 fL (7.4-10.4); Platelet Count 304 thou/uL (130-400); RBC Distribution Width 14.6 % (11.5-14.5); Red Blood Cell (RBC) Count 2.28 mill/uL (4.20-5.40); White Blood Cell (WBC) Count 12.6 thou/uL (4.8-10.8)
[2021-06-08] MEDS: Ascorbic Acid 500 mg Chewable Tablet PO SCH ×2 (08:01→21:09)
[2021-06-08] MEDS: Polyethylene Glycol 3350 17 GM Packet PO SCH (08:01)
[2021-06-08] MEDS: Senokot S 8.6-50 MG TAB PO SCH ×2 (08:01→21:09)
[2021-06-08] MEDS: Escitalopram Oxalate 10 mg Tablet PO SCH ×2 (08:01→21:10)
[2021-06-08] MEDS: lamoTRIgine 100 MG TAB PO SCH (08:01)
[2021-06-08] MEDS: Ferrous Sulfate 325 MG TAB PO SCH ×2 (08:01→16:59)
[2021-06-08] MEDS: Pregabalin 25 MG CAP PO SCH (08:01)
[2021-06-08] MEDS ORDERED: Apixaban 5 MG TAB PO SCH (09:00)
[2021-06-08] MEDS ORDERED: Lisinopril 10 MG TAB PO SCH (09:00)
[2021-06-08] MEDS ORDERED: Amlodipine 10 MG TAB PO SCH (09:00)
[2021-06-08] MEDS: Sodium Chloride 1 GM TAB PO SCH ×2 (14:40→21:09)
[2021-06-08 15:18] LABS: #Lymphocytes 1.5 thou/uL (1.20-3.40); #Monocytes 1.1 thou/uL (0.11-0.59); #Neutrophils 11.8 thou/uL (1.40-6.50); %Basophils 0.3 % (0.0-1.0); %Eosinophils 0.1 % (0.0-10.0); %Lymphocytes 10.6 % (21.0-51.0); %Monocytes 7.4 % (0.0-10.0); %Neutrophils 81.5 % (42.0-75.0); Hemoglobin 7.4 g/dL (12.0-16.0); Mean Corpuscular HGB CONC 33.4 g/dL (32.0-36.0); Mean Corpuscular Hemoglobin 27.6 pg (27.0-31.0); Mean Corpuscular Volume 82.5 fL (78.0-98.0); Mean Platelet Volume 6.7 fL (7.4-10.4); Platelet Count 296 thou/uL (130-400); RBC Distribution Width 14.7 % (11.5-14.5); White Blood Cell (WBC) Count 14.5 thou/uL (4.8-10.8)
[2021-06-08 15:42] LABS: Anion Gap 12 mmol/L (10-20); BUN (Urea Nitrogen) 24 mg/dL (9.8-20.1); Calc. Creatinine Clearance 42 mL/min (70-130); Calcium 7.4 mg/dL (7.8-10.44); Carbon Dioxide 23 mmol/L (23-31); Chloride 99 mmol/L (98-107); Glucose 167 mg/dL (83-110); Magnesium 3.1 mg/dL (1.6-2.6); Phosphorus 5.2 mg/dL (2.3-4.7); Potassium 3.7 mmol/L (3.5-5.1); Sodium 130 mmol/L (136-145)
[2021-06-08] MEDS ORDERED: Sodium Chloride 0.9% 1,000 ML IV SCH ×2 (16:00)
[2021-06-08] MEDS ORDERED: Hydrocortisone Sod Succ/PF 100 mg/2 ml Vial IVP SCH (16:15)
[2021-06-08] MEDS ORDERED: Calcium Chloride 1 GM/10 ML Abboject SYRINGE IVP SCH (16:15)
[2021-06-08] MEDS ORDERED: Acetaminophen/Codeine 30-300mg Tablet PO PRN ×2 (18:59→20:00)
[2021-06-08] MEDS: Hydrocortisone Sod Succ/PF 100 mg/2 ml Vial IVP SCH (21:10)
[2021-06-08] MEDS: Donepezil HCl 10 MG TAB PO SCH (21:10)
[2021-06-08] MEDS: Melatonin 3 MG TAB PO SCH (21:10)
[2021-06-09] MEDS: Acetaminophen 325 MG TAB PO SCH ×5 (00:13→22:32)
[2021-06-09] MEDS: Sodium Chloride 1 GM TAB PO SCH ×3 (05:43→22:33)
[2021-06-09] MEDS: Hydrocortisone Sod Succ/PF 100 mg/2 ml Vial IVP SCH ×3 (05:44→22:34)
[2021-06-09] MEDS: Insulin Regular 300 UNITS/3 ML VIAL SC PRN ×2 (05:56→12:41)
[2021-06-09 06:32] LABS: #Lymphocytes 0.9 thou/uL (1.20-3.40); #Monocytes 0.8 thou/uL (0.11-0.59); #Neutrophils 11.6 thou/uL (1.40-6.50); %Eosinophils 0.2 % (0.0-10.0); %Monocytes 5.6 % (0.0-10.0); %Neutrophils 87.1 % (42.0-75.0); Hemoglobin 8.9 g/dL (12.0-16.0); Mean Corpuscular HGB CONC 33.1 g/dL (32.0-36.0); Mean Corpuscular Volume 81.5 fL (78.0-98.0); Mean Platelet Volume 7.3 fL (7.4-10.4); Platelet Count 294 thou/uL (130-400); RBC Distribution Width 14.7 % (11.5-14.5); Red Blood Cell (RBC) Count 3.31 mill/uL (4.20-5.40); White Blood Cell (WBC) Count 13.3 thou/uL (4.8-10.8)
[2021-06-09 06:51] LABS: Anion Gap 11 mmol/L (10-20); BUN (Urea Nitrogen) 26 mg/dL (9.8-20.1); Calc. Creatinine Clearance 47 mL/min (70-130); Calcium 8.2 mg/dL (7.8-10.44); Carbon Dioxide 23 mmol/L (23-31); Chloride 103 mmol/L (98-107); Glucose 151 mg/dL (83-110); Magnesium 2.7 mg/dL (1.6-2.6); Phosphorus 4.8 mg/dL (2.3-4.7); Potassium 3.6 mmol/L (3.5-5.1); Sodium 133 mmol/L (136-145)
[2021-06-09] MEDS ORDERED: Potassium Chloride 20 MEQ TAB PO SCH (07:15)
[2021-06-09] MEDS ORDERED: Apixaban 5 MG TAB PO SCH (09:00)
[2021-06-09] MEDS: Amlodipine 10 MG TAB PO SCH (09:29)
[2021-06-09] MEDS: Senokot S 8.6-50 MG TAB PO SCH (09:29)
[2021-06-09] MEDS: Polyethylene Glycol 3350 17 GM Packet PO SCH (09:29)
[2021-06-09] MEDS: Ferrous Sulfate 325 MG TAB PO SCH ×2 (09:29→17:33)
[2021-06-09] MEDS: Escitalopram Oxalate 10 mg Tablet PO SCH ×2 (09:30→22:33)
[2021-06-09] MEDS: lamoTRIgine 100 MG TAB PO SCH (09:30)
[2021-06-09] MEDS: Ascorbic Acid 500 mg Chewable Tablet PO SCH ×2 (09:31→22:31)
[2021-06-09 20:35] LABS: SARS-CoV-2 PCR by NAA DETECTED (NotDetected)
[2021-06-09] MEDS: Melatonin 3 MG TAB PO SCH (22:32)
[2021-06-09] MEDS: Donepezil HCl 10 MG TAB PO SCH (22:34)
[2021-06-10 05:55] LABS: #Monocytes 0.6 thou/uL (0.11-0.59); #Neutrophils 8.3 thou/uL (1.40-6.50); %Eosinophils 0.2 % (0.0-10.0); %Lymphocytes 10.3 % (21.0-51.0); %Monocytes 6.1 % (0.0-10.0); %Neutrophils 83.5 % (42.0-75.0); Hemoglobin 7.9 g/dL (12.0-16.0); Mean Corpuscular HGB CONC 32.1 g/dL (32.0-36.0); Mean Corpuscular Hemoglobin 26.5 pg (27.0-31.0); Mean Corpuscular Volume 82.4 fL (78.0-98.0); Platelet Count 308 thou/uL (130-400); Red Blood Cell (RBC) Count 2.99 mill/uL (4.20-5.40); White Blood Cell (WBC) Count 9.9 thou/uL (4.8-10.8)
[2021-06-10] MEDS: Senokot S 8.6-50 MG TAB PO SCH ×3 (06:13→20:52)
[2021-06-10] MEDS: Acetaminophen 325 MG TAB PO SCH ×3 (06:13→17:13)
[2021-06-10] MEDS: Sodium Chloride 1 GM TAB PO SCH ×3 (06:13→20:52)
[2021-06-10] MEDS ORDERED: Apixaban 5 MG TAB PO SCH (09:00)
[2021-06-10] MEDS: Hydrocortisone Sod Succ/PF 100 mg/2 ml Vial IVP SCH (09:21)
[2021-06-10] MEDS: Ferrous Sulfate 325 MG TAB PO SCH ×2 (09:21→17:13)
[2021-06-10] MEDS: Ascorbic Acid 500 mg Chewable Tablet PO SCH ×2 (09:21→20:51)
[2021-06-10] MEDS: Polyethylene Glycol 3350 17 GM Packet PO SCH (09:21)
[2021-06-10] MEDS: Amlodipine 10 MG TAB PO SCH (09:21)
[2021-06-10] MEDS: Escitalopram Oxalate 10 mg Tablet PO SCH ×2 (09:22→20:52)
[2021-06-10] MEDS: lamoTRIgine 100 MG TAB PO SCH (09:22)
[2021-06-10] MEDS: Insulin Regular 300 UNITS/3 ML VIAL SC PRN ×2 (12:38→17:11)
[2021-06-10] MEDS: Apixaban 5 MG TAB PO SCH (20:51)
[2021-06-10] MEDS: Melatonin 3 MG TAB PO SCH (20:52)
[2021-06-10] MEDS: Donepezil HCl 10 MG TAB PO SCH (20:52)
[2021-06-11 06:23] LABS: #Eosinphils 0.3 thou/uL (0.0-0.7); #Lymphocytes 1.7 thou/uL (1.20-3.40); #Monocytes 0.5 thou/uL (0.11-0.59); #Neutrophils 4.9 thou/uL (1.40-6.50); %Basophils 0.2 % (0.0-1.0); %Lymphocytes 22.6 % (21.0-51.0); %Monocytes 7.1 % (0.0-10.0); %Neutrophils 66.1 % (42.0-75.0); Hemoglobin 8.4 g/dL (12.0-16.0); Mean Corpuscular HGB CONC 31.9 g/dL (32.0-36.0); Mean Corpuscular Hemoglobin 26.5 pg (27.0-31.0); Mean Corpuscular Volume 83.1 fL (78.0-98.0); Mean Platelet Volume 6.7 fL (7.4-10.4); Platelet Count 329 thou/uL (130-400); RBC Distribution Width 15.3 % (11.5-14.5); Red Blood Cell (RBC) Count 3.15 mill/uL (4.20-5.40); White Blood Cell (WBC) Count 7.4 thou/uL (4.8-10.8)
[2021-06-11] MEDS: Sodium Chloride 1 GM TAB PO SCH ×3 (07:24→20:07)
[2021-06-11 08:08] LABS: Anion Gap 11 mmol/L (10-20); BUN (Urea Nitrogen) 17 mg/dL (9.8-20.1); Calc. Creatinine Clearance 74 mL/min (70-130); Calcium 7.9 mg/dL (7.8-10.44); Carbon Dioxide 25 mmol/L (23-31); Chloride 103 mmol/L (98-107); Glucose 106 mg/dL (83-110); Phosphorus 1.9 mg/dL (2.3-4.7); Potassium 3.8 mmol/L (3.5-5.1); Sodium 135 mmol/L (136-145)
[2021-06-11] MEDS: Escitalopram Oxalate 10 mg Tablet PO SCH ×2 (08:48→20:08)
[2021-06-11] MEDS: Apixaban 5 MG TAB PO SCH ×2 (08:48→20:07)
[2021-06-11] MEDS: Ferrous Sulfate 325 MG TAB PO SCH ×2 (08:48→16:42)
[2021-06-11] MEDS: Polyethylene Glycol 3350 17 GM Packet PO SCH (08:48)
[2021-06-11] MEDS: lamoTRIgine 100 MG TAB PO SCH (08:48)
[2021-06-11] MEDS: Senokot S 8.6-50 MG TAB PO SCH ×2 (08:48→20:08)
[2021-06-11] MEDS: Amlodipine 10 MG TAB PO SCH (08:48)
[2021-06-11] MEDS: Ascorbic Acid 500 mg Chewable Tablet PO SCH ×2 (08:48→20:08)
[2021-06-11] MEDS ORDERED: Sodium Phosphate 30 MMOL in Sodium Chloride 0.9% 250 ML 250 ML IVPB SCH (09:00)
[2021-06-11] MEDS: Acetaminophen 325 MG TAB PO SCH ×3 (11:48→16:42)
[2021-06-11] MEDS: Melatonin 3 MG TAB PO SCH (20:07)
[2021-06-11] MEDS: Donepezil HCl 10 MG TAB PO SCH (20:07)
[2021-06-11] MEDS: Insulin Regular 300 UNITS/3 ML VIAL SC PRN (20:11)
[2021-06-12] MEDS: Acetaminophen 325 MG TAB PO SCH ×4 (00:13→17:42)
[2021-06-12] MEDS: Sodium Chloride 1 GM TAB PO SCH ×3 (05:03→19:51)
[2021-06-12] MEDS ORDERED: hydrALAZINE 20 MG/ML VIAL SLOW IVP PRN (07:54)
[2021-06-12] MEDS: Apixaban 5 MG TAB PO SCH ×2 (08:35→19:50)
[2021-06-12] MEDS: lamoTRIgine 100 MG TAB PO SCH (08:35)
[2021-06-12] MEDS: Escitalopram Oxalate 10 mg Tablet PO SCH ×2 (08:36→19:50)
[2021-06-12] MEDS: Amlodipine 10 MG TAB PO SCH (08:36)
[2021-06-12] MEDS: Polyethylene Glycol 3350 17 GM Packet PO SCH (08:36)
[2021-06-12] MEDS: Ferrous Sulfate 325 MG TAB PO SCH ×2 (08:36→17:42)
[2021-06-12] MEDS: Senokot S 8.6-50 MG TAB PO SCH ×2 (08:36→19:50)
[2021-06-12] MEDS: Ascorbic Acid 500 mg Chewable Tablet PO SCH ×2 (08:36→19:50)
[2021-06-12] MEDS: Donepezil HCl 10 MG TAB PO SCH (19:50)
[2021-06-12] MEDS: Melatonin 3 MG TAB PO SCH (19:50)
[2021-06-13] MEDS: Acetaminophen 325 MG TAB PO SCH ×5 (00:21→23:37)
[2021-06-13] MEDS: Sodium Chloride 1 GM TAB PO SCH (04:53)
[2021-06-13] MEDS: Polyethylene Glycol 3350 17 GM Packet PO SCH (09:00)
[2021-06-13] MEDS: Senokot S 8.6-50 MG TAB PO SCH ×2 (09:00→22:20)
[2021-06-13] MEDS: Apixaban 5 MG TAB PO SCH ×2 (09:02→22:08)
[2021-06-13] MEDS: Amlodipine 10 MG TAB PO SCH (09:02)
[2021-06-13] MEDS: Ferrous Sulfate 325 MG TAB PO SCH ×2 (09:02→17:31)
[2021-06-13] MEDS: Escitalopram Oxalate 10 mg Tablet PO SCH ×2 (09:02→22:09)
[2021-06-13] MEDS: lamoTRIgine 100 MG TAB PO SCH (09:02)
[2021-06-13] MEDS: Ascorbic Acid 500 mg Chewable Tablet PO SCH ×2 (09:02→22:10)
[2021-06-13] MEDS ORDERED: hydrALAZINE 10 MG TAB PO PRN (12:25)
[2021-06-13] MEDS: Melatonin 3 MG TAB PO SCH (22:08)
[2021-06-13] MEDS: Donepezil HCl 10 MG TAB PO SCH (22:08)
[2021-06-14] MEDS: Acetaminophen 325 MG TAB PO SCH ×2 (07:23→12:56)
[2021-06-14] MEDS: Ferrous Sulfate 325 MG TAB PO SCH (08:33)
[2021-06-14] MEDS: lamoTRIgine 100 MG TAB PO SCH (08:34)
[2021-06-14] MEDS: Ascorbic Acid 500 mg Chewable Tablet PO SCH (08:34)
[2021-06-14] MEDS: Apixaban 5 MG TAB PO SCH (08:35)
[2021-06-14] MEDS: Escitalopram Oxalate 10 mg Tablet PO SCH (08:35)
[2021-06-14] MEDS: Senokot S 8.6-50 MG TAB PO SCH (08:35)
[2021-06-14] MEDS: Amlodipine 10 MG TAB PO SCH (08:35)
[2021-06-14] MEDS: Polyethylene Glycol 3350 17 GM Packet PO SCH (08:35)
[2021-06-14 11:48] VITALS: BP 166/83; TEMP 98.3
== END 2021-06-14 14:48 | DRG 480 ==
LOC: ERS 09:19 → SURG A 12:52
PROVIDERS: ADMIT Surgery; ATTEND Surgery
PROC: 8E0ZXY6 Isolation (ICD-10-PCS; 2021-06-05)
PROC: 0QSC04Z Reposition Left Lower Femur with Internal Fixation Device, Open Approach (ICD-10-PCS; principal; 2021-06-07)
PROC: 30233N1 Transfusion of Nonautologous Red Blood Cells into Peripheral Vein, Percutaneous Approach (ICD-10-PCS; 2021-06-08)
DX: S72.492A Other fracture of lower end of left femur, initial encounter for closed fracture (principal); U07.1 COVID-19; M97.02XA Periprosthetic fracture around internal prosthetic left hip joint, initial encounter; D62 Acute posthemorrhagic anemia; E87.1 Hypo-osmolality and hyponatremia; W18.30XA Fall on same level, unspecified, initial encounter; I10 Essential (primary) hypertension; I48.91 Unspecified atrial fibrillation; E11.9 Type 2 diabetes mellitus without complications; M19.90 Unspecified osteoarthritis, unspecified site; G40.909 Epilepsy, unspecified, not intractable, without status epilepticus; G30.9 Alzheimer's disease, unspecified; F02.80 Dementia in other diseases classified elsewhere, unspecified severity, without behavioral disturbance, psychotic disturbance, mood disturbance, and anxiety; E83.39 Other disorders of phosphorus metabolism; D72.829 Elevated white blood cell count, unspecified; E66.3 Overweight; F32.A Depression, unspecified; E83.41 Hypermagnesemia; E83.42 Hypomagnesemia; Z90.49 Acquired absence of other specified parts of digestive tract; Z90.89 Acquired absence of other organs; Z79.01 Long term (current) use of anticoagulants; Y92.009 Unspecified place in unspecified non-institutional (private) residence as the place of occurrence of the external cause; Z79.899 Other long term (current) drug therapy; Z79.84 Long term (current) use of oral hypoglycemic drugs; Z88.2 Allergy status to sulfonamides; Z88.8 Allergy status to other drugs, medicaments and biological substances; Z68.29 Body mass index [BMI] 29.0-29.9, adult; Z87.891 Personal history of nicotine dependence
CPT/HCPCS: 36415; 36416; 36430; 70450; 72125; 72170; 76000; 80048; 80053; 82533; 83036; 83735; 83880; 84100; 84484; 85025; 85610; 85730; 86850; 86900; 86901; 93005; 93010; 96374; 96375; C1713; C1776; G0390; J0360; J0690; J1100; J1642; J1720; J1815; J2001; J2270; J2405; J2550; J2704; J3010; J3475; J3490; J7030; J7050; P9016; S0028; U0003; U0005

== ENCOUNTER 2024-04-02 19:28 | Inpatient (IN) | payer MEDICARE, OTHER ==
[2024-04-02 20:16] LABS: #Basophils Less than 0.03 10x3/uL (0.0-0.2); #Eosinophils Less than 0.03 10x3/uL (0.0-0.7); %Basophils 0.2 % (0.0-1.0); %Lymphocytes 9.5 % (21.0-51.0); %Neutrophils 78.9 % (42.0-75.0); Hematocrit 29.9 % (36.0-47.0); Hemoglobin 9.8 g/dL (12.0-16.0); Mean Corpuscular HGB CONC 32.8 g/dL (32.0-36.0); Mean Corpuscular Hemoglobin 27.5 pg (27.0-31.0); Mean Platelet Volume 10.6 fL (7.4-10.4); Platelet Count 213 10x3/uL (130-400); RBC Distribution Width 12.9 % (11.5-14.5); Red Blood Cell (RBC) Count 3.56 mill/uL (4.20-5.40)
[2024-04-02] MEDS ORDERED: LevoFLOXacin 750 mg/D5W 150 ml Premix Bag ONE (20:23)
[2024-04-02 20:39] LABS: ALT (SGPT) 8 U/L (8-55); AST (SGOT) 21 U/L (5-34); Albumin 2.7 g/dL (3.4-4.8); Alkaline Phosphatase 41 U/L (40-110); Anion Gap 18 mmol/L (10-20); BUN (Urea Nitrogen) 43 mg/dL (9.8-20.1); Bilirubin, Total 0.4 mg/dL (0.2-1.2); Calc. Creatinine Clearance 0 mL/min (70-130); Calcium 8.5 mg/dL (7.8-10.44); Carbon Dioxide 19 mmol/L (23-31); Chloride 106 mmol/L (98-107); Estimated GFR 31; Globulin 3.3 g/dL (2.4-3.5); Glucose 113 mg/dL (83-110); Potassium 4.1 mmol/L (3.5-5.1); Sodium 139 mmol/L (136-145)
[2024-04-02 20:42] LABS: Troponin I Less than 0.010 ng/mL (< 0.028)
[2024-04-02] MEDS: Vancomycin (BATCH) 1.25 GM in Premix 1 BAG IVPB SCH (22:15)
[2024-04-02 23:49] LABS: Troponin I Less than 0.010 ng/mL (< 0.028)
[2024-04-03] MEDS ORDERED: Insulin Regular, Human 100 UNIT/ML 10 ML VIAL SC PRN ×2 (00:39)
[2024-04-03] MEDS ORDERED: Glucagon 1 MG/ML KIT IM PRN (00:39)
[2024-04-03] MEDS ORDERED: Dextrose 50% Abboject 50 ML SYRINGE SLOW IVP PRN (00:39)
[2024-04-03] MEDS ORDERED: Dextrose 5% in Water 1,000 ML IV PRN (00:39)
[2024-04-03] MEDS ORDERED: Ondansetron ODT 4 MG TAB PO PRN (00:39)
[2024-04-03] MEDS ORDERED: Calcium Carbonate 500 MG ChewTAB PO PRN (00:39)
[2024-04-03] MEDS ORDERED: Polyethylene Glycol 3350 17 GM Packet PO PRN (00:52)
[2024-04-03] MEDS ORDERED: guaiFENesin ER 600 MG TAB PO PRN (00:52)
[2024-04-03 02:30] LABS: #Basophils Less than 0.03 10x3/uL (0.0-0.2); #Eosinophils Less than 0.03 10x3/uL (0.0-0.7); %Basophils 0.1 % (0.0-1.0); %Eosinophils 0.2 % (0.0-10.0); %Lymphocytes 8.9 % (21.0-51.0); %Monocytes 10.2 % (0.0-10.0); Hematocrit 33.1 % (36.0-47.0); Hemoglobin 10.4 g/dL (12.0-16.0); Mean Corpuscular HGB CONC 31.4 g/dL (32.0-36.0); Mean Corpuscular Hemoglobin 27.9 pg (27.0-31.0); Mean Corpuscular Volume 88.7 fL (78.0-98.0); Mean Platelet Volume 10.4 fL (7.4-10.4); Platelet Count 219 10x3/uL (130-400); RBC Distribution Width 12.9 % (11.5-14.5); Red Blood Cell (RBC) Count 3.73 mill/uL (4.20-5.40)
[2024-04-03] MEDS ORDERED: Furosemide 40 MG (4 mL) VIAL ONE (02:35)
[2024-04-03] MEDS: Furosemide 40 MG (4 mL) VIAL SLOW IVP SCH (02:42)
[2024-04-03 02:43] LABS: Anion Gap 18 mmol/L (10-20); BUN (Urea Nitrogen) 42 mg/dL (9.8-20.1); Calc. Creatinine Clearance 25 mL/min (70-130); Calcium 8.3 mg/dL (7.8-10.44); Carbon Dioxide 17 mmol/L (23-31); Chloride 106 mmol/L (98-107); Estimated GFR 33; Glucose 80 mg/dL (83-110); Potassium 3.9 mmol/L (3.5-5.1); Sodium 137 mmol/L (136-145)
[2024-04-03 02:51] LABS: Troponin I Less than 0.010 ng/mL (< 0.028)
[2024-04-03] MEDS ORDERED: Vancomycin 1.25 GM in Sodium Chloride 0.9% 500 ML IVPB SCH (06:00)
[2024-04-03] MEDS ORDERED: Vancomycin Dose by Levels Sliding Scale (Wt <71) FS SCH (06:15)
[2024-04-03] MEDS ORDERED: Lisinopril 10 MG TAB ONE (08:33)
[2024-04-03] MEDS ORDERED: Amlodipine 5 MG TAB ONE (08:33)
[2024-04-03] MEDS ORDERED: Heparin 5,000 UNITS/ML VIAL ONE ×2 (08:33→14:26)
[2024-04-03] MEDS ORDERED: Divalproex Sodium 250 MG (DR) TAB ONE ×2 (08:33→14:25)
[2024-04-03] MEDS: Amlodipine 10 MG TAB PO SCH (08:44)
[2024-04-03] MEDS: Heparin 5,000 UNITS/ML VIAL SC SCH (08:45)
[2024-04-03] MEDS: Divalproex Sodium 250 MG (DR) TAB PO SCH (08:45)
[2024-04-03] MEDS: Lisinopril 10 MG TAB PO SCH (08:46)
[2024-04-03] MEDS ORDERED: Ipratropium/Albuterol 3 ML NEB NEB PRN (09:07)
[2024-04-03] MEDS: Escitalopram Oxalate 10 mg Tablet PO SCH (10:27)
[2024-04-03] MEDS: Docusate 100 MG CAP PO SCH (10:27)
[2024-04-03] MEDS: metFORMIN 500 MG TAB PO SCH (10:27)
[2024-04-03] MEDS: lamoTRIgine 25 MG TAB PO SCH (10:27)
[2024-04-03] MEDS: Ascorbic Acid 500 mg Chewable Tablet PO SCH (10:27)
[2024-04-03] MEDS: Ferrous Sulfate 325 MG TAB PO SCH (10:27)
[2024-04-03] MEDS: Memantine 10 MG TAB PO SCH (10:28)
[2024-04-03] MEDS: Multivitamin W/ Minerals 1 TAB PO SCH (10:28)
[2024-04-03] MEDS ORDERED: Ipratropium/Albuterol 3 ML NEB ONE ×2 (10:54→14:41)
[2024-04-03] MEDS: Ipratropium/Albuterol 3 ML NEB NEB SCH (10:59)
[2024-04-03 12:17] LABS: Legionella Urinary Ag Negative (Negative)
[2024-04-03 18:43] VITALS: BMI 24.0
[2024-04-03] MEDS ORDERED: Vancomycin HCl 750 MG in Sodium Chloride 0.9% 250 ML 250 ML IVPB SCH (21:00)
[2024-04-03] MEDS: Mirtazapine 15 MG TAB PO SCH (21:27)
[2024-04-03] MEDS: Donepezil HCl 10 MG TAB PO SCH (21:28)
[2024-04-03] MEDS: Melatonin 3 MG TAB PO SCH (21:28)
[2024-04-03 23:12] LABS: Vancomycin, Trough 12.5 ug/mL
[2024-04-04] MEDS: Vancomycin HCl 500 MG in Sodium Chloride 0.9% 100 ML IV SCH (10:21)
[2024-04-04] MEDS: Escitalopram Oxalate 20 mg Tablet PO SCH (10:22)
[2024-04-04] MEDS: Benzonatate 100 MG CAP PO PRN (10:22)
[2024-04-04 11:52] VITALS: BMI 23.9
[2024-04-04] MEDS: Guaifenesin DM 100-10/5 ML UDCUP PO PRN (16:17)
[2024-04-04] MEDS: LevoFLOXacin 750 mg/D5W 750 MG in Premix 1 BAG IVPB SCH (20:55)
[2024-04-05 10:19] LABS: #Basophils Less than 0.03 10x3/uL (0.0-0.2); %Basophils 0.2 % (0.0-1.0); %Eosinophils 0.8 % (0.0-10.0); %Lymphocytes 11.5 % (21.0-51.0); %Monocytes 7.8 % (0.0-10.0); %Neutrophils 78.5 % (42.0-75.0); Hematocrit 26.4 % (36.0-47.0); Hemoglobin 8.5 g/dL (12.0-16.0); Mean Corpuscular HGB CONC 32.2 g/dL (32.0-36.0); Mean Corpuscular Hemoglobin 28.1 pg (27.0-31.0); Mean Corpuscular Volume 87.1 fL (78.0-98.0); Mean Platelet Volume 10.3 fL (7.4-10.4); Platelet Count 213 10x3/uL (130-400); RBC Distribution Width 12.9 % (11.5-14.5); Red Blood Cell (RBC) Count 3.03 mill/uL (4.20-5.40)
[2024-04-05 10:34] LABS: Anion Gap 12 mmol/L (10-20); BUN (Urea Nitrogen) 40 mg/dL (9.8-20.1); Calc. Creatinine Clearance 23 mL/min (70-130); Calcium 8.5 mg/dL (7.8-10.44); Carbon Dioxide 21 mmol/L (23-31); Chloride 106 mmol/L (98-107); Estimated GFR 35; Glucose 146 mg/dL (83-110); Sodium 136 mmol/L (136-145)
[2024-04-05] MEDS: Potassium Chloride 20 MEQ in Premix 1 BAG IVPB SCH (13:36)
[2024-04-05] MEDS: LevoFLOXacin 250 MG TAB PO SCH (13:38)
[2024-04-05] MEDS: Potassium Chloride 20 MEQ TAB PO SCH (13:38)
[2024-04-05] MEDS: Benzocaine/Menthol 1 LOZ LOZ PO PRN (17:39)
[2024-04-05] MEDS ORDERED: LevoFLOXacin 250 MG TAB PO SCH (20:00)
[2024-04-06 04:42] LABS: #Basophils Less than 0.03 10x3/uL (0.0-0.2); %Basophils 0.3 % (0.0-1.0); %Eosinophils 0.9 % (0.0-10.0); %Lymphocytes 14.5 % (21.0-51.0); %Monocytes 9.5 % (0.0-10.0); %Neutrophils 70.9 % (42.0-75.0); Hematocrit 26.3 % (36.0-47.0); Hemoglobin 8.5 g/dL (12.0-16.0); Mean Corpuscular HGB CONC 32.3 g/dL (32.0-36.0); Mean Corpuscular Hemoglobin 27.8 pg (27.0-31.0); Mean Corpuscular Volume 85.9 fL (78.0-98.0); Mean Platelet Volume 10.4 fL (7.4-10.4); Platelet Count 251 10x3/uL (130-400); Red Blood Cell (RBC) Count 3.06 mill/uL (4.20-5.40)
[2024-04-06 05:35] LABS: Anion Gap 14 mmol/L (10-20); BUN (Urea Nitrogen) 30 mg/dL (9.8-20.1); Calc. Creatinine Clearance 31 mL/min (70-130); Calcium 8.5 mg/dL (7.8-10.44); Carbon Dioxide 20 mmol/L (23-31); Chloride 106 mmol/L (98-107); Estimated GFR 35; Glucose 101 mg/dL (83-110); Potassium 4.3 mmol/L (3.5-5.1); Sodium 136 mmol/L (136-145)
[2024-04-06] MEDS: LevoFLOXacin 250 MG TAB PO SCH (10:07)
[2024-04-06] MEDS: predniSONE 20 MG TAB PO SCH (14:06)
[2024-04-06] MEDS: Ipratropium/Albuterol 3 ML NEB NEB SCH (15:05)
[2024-04-06 16:52] VITALS: BP 138/64; TEMP 97.7
[2024-04-07] MEDS ORDERED: predniSONE 20 MG TAB PO SCH (08:00)
== END 2024-04-06 18:50 | DRG 193 ==
LOC: ERS 19:28 → ERHOLD 21:55 → 2NO 22:14
PROVIDERS: ADMIT Family Medicine; ATTEND Family Medicine
DX: J18.9 Pneumonia, unspecified organism (principal); J96.01 Acute respiratory failure with hypoxia; N17.9 Acute kidney failure, unspecified; J44.1 Chronic obstructive pulmonary disease with (acute) exacerbation; J44.0 Chronic obstructive pulmonary disease with (acute) lower respiratory infection; E11.9 Type 2 diabetes mellitus without complications; G30.9 Alzheimer's disease, unspecified; F02.80 Dementia in other diseases classified elsewhere, unspecified severity, without behavioral disturbance, psychotic disturbance, mood disturbance, and anxiety; G40.909 Epilepsy, unspecified, not intractable, without status epilepticus; F41.9 Anxiety disorder, unspecified; F32.A Depression, unspecified; I48.91 Unspecified atrial fibrillation; E87.6 Hypokalemia; F17.210 Nicotine dependence, cigarettes, uncomplicated
CPT/HCPCS: 36415; 36416; 71045; 80048; 80053; 80202; 83605; 83880; 84145; 84484; 85025; 87040; 87081; 87428; 87633; 87798; 87899; 93005; 93306; 94640; 96365; 96366; 96367; J1644; J1940; J1956; J3370; J3480; J7512; J7620

== ENCOUNTER 2025-03-02 15:22 | Outpatient (CLI) | payer MEDICARE, OTHER | END 2025-03-02 15:23 | disposition home or self-care (01) | LOC: BICRAD 15:22 | PROVIDERS: ATTEND Family Medicine | DX: J18.9 Pneumonia, unspecified organism (principal); I51.7 Cardiomegaly; J98.11 Atelectasis | CPT/HCPCS: 71046 ==